=== PATIENT | male | born 1945 | race Caucasian/White ===

== ENCOUNTER → 2017-10-29 | Outpatient (CLI) | payer OTHER, MEDICARE | END | disposition home or self-care (01) | LOC: C.LABSPEC 17:05 | PROVIDERS: ATTEND Physician Assistant | DX: S81.802A Unspecified open wound, left lower leg, initial encounter (principal); X58.XXXA Exposure to other specified factors, initial encounter ==

== ENCOUNTER 2021-09-22 02:46 | Inpatient (IN) ==
--- NOTE | 2021-09-22 03:25 | Emergency Department Note ---
Impression & Plan Acute UTI (urinary tract infection), Acute confusion, Cellulitis ADMIT ED Provider Note HPI: The patient is a 75-year-old gentleman with history of lymphedema, hyperlipi demia, type 2 diabetes, reports history of rheumatoid arthritis and he is on methotrexate, presents the emergency department with a chief complaint of fever yesterday. Patient states he is also had increased urination. Patient states that the lymphedema in his right lower extremity seems to be more red/inflamed than previous. Patient's states that he has been mildly confused recently. On arrival to the ED the patient is hemodynamically stable, he is in no acute distress on my initial evaluation, he is alert and oriented x3 but somewhat slow to respond to questions. ROS: -: Urinary frequency -Neuro: Confusion -General: Subjective fevers -Skin: Right lower extremity cellulitis and lymphedema *10 point review systems was conducted and is otherwise negative unless stated above *Outpatient medications and allergy history reviewed PE: General: Morbidly obese, alert, NAD HEENT: Normocephalic, atraumatic Eyes: Extraocular eye movement is intact, no scleral erythema Pulmonary: Clear to auscultation bilaterally, no wheezing Cardio: Regular rate and rhythm GI: Abdomen is soft, nontender : No suprapubic tenderness MSK: Swelling of the bilateral lower extremities below the knee consistent with pre-existing lymphedema Skin: Erythema is noted to the right lower extremity near circumferential, no blister formation or purulent drainage, no crepitus to palpation Neuro: Alert, no focal deficits Psychiatric: Cooperative teletypesetter monitor: - An order was placed for continuous cardiac monitoring - Patient was noted to be in sinus rhythm with rate of 103 EKG: Rate: 109 Rhythm: Sinus tachycardia Intervals: Within normal limits ST changes: No ST elevation Time: 0321 Medical Decision Making: Patient presented to the emergency department with some altered mental status, he has had some confusion, he is also had subjective fevers, admits to frequent urination, also complains of some worsening redness and pain in his right lower extremity. He is morbidly obese, has a pre-existing history of lymphedema. He is tachycardic on arrival but otherwise hemodynamically stable, saturating well on room air. IV was established, lab work obtained, patient does have evidence of a significant leukocytosis of 19.5, blood cultures were drawn, urinalysis does show evidence of infection, patient was treated with IV ceftriaxone as well as IV vancomycin over concern for cellulitic changes to the right lower extremity. CT emerging of the head does not show any evidence of an acute process, CT imaging of the abdomen pelvis does not show any evidence of pyelonephritis. I discussed the above findings with the patient and his son at the bedside, in addition to his leukocytosis his procalcitonin is also elevated, I do think he would benefit from admission for IV antibiotics given his size and multiple comorbidities. Patient expressed an agreement understanding. He is in agreement to admission, case was discussed with the on-call hospitalist for [facility], Dr. Martinez, the patient was admitted in stable condition for further care. Diagnosis: 1. Metabolic encephalopathy 2. Urinary tract infection 3. Leukocytosis 4. Elevated procalcitonin 5. Right lower extremity cellulitis 6. History of lymphedema of the bilateral lower extremities 7. Morbid obesity Disposition: Admission [facility], Emergency Medicine Past Med/Surg History Social History Smoking Status: Never smoker Feels Safe at Home: Yes Allergies Allergies Allergy/AdvReac Type Severity Reaction Status Date / Time No Known Allergies Allergy Unknown Verified 09/25/20 17:44 NONSTEROIDAL AdvReac Unknown NO NSAIDS Uncoded 09/25/20 17:[address] HUNT ON 12/06/03 Home Meds Home Medications Medication Instructions Recorded Confirmed cholecalciferol (vitamin D3) 125 125 mcg PO DAILY 09/23/19 09/25/20 mcg (5,000 unit) capsule cyclobenzaprine 10 mg tablet 10 mg PO HS PRN 09/23/19 09/25/20 folic acid 1 mg tablet 1 mg PO DAILY 09/23/19 09/25/20 furosemide 40 mg tablet 40 mg PO DAILY 09/23/19 09/25/20 losartan 50 mg tablet 50 mg PO DAILY 09/23/19 09/25/20 metformin 500 mg tablet 500 mg PO DAILY 09/23/19 09/25/20 metolazone 2.5 mg tablet 2.5 mg PO DAILY 09/23/19 09/25/20 multivitamin (Daily Multi-Vitamin) 1 tab PO DAILY 09/23/19 09/25/20 oxycodone-acetaminophen 5 mg-325 1 tab PO UD PRN 09/23/19 09/25/20 mg tablet spironolactone 25 mg tablet 25 mg PO DAILY 09/23/19 09/25/20 trazodone 100 mg tablet 100 mg PO HS 09/23/19 09/25/20 calcium carbonate 500 mg-vitamin 1 tab PO DAILY 09/25/20 09/25/20 D3 15 mcg (600 unit) tablet methylprednisolone 4 mg tablet 32 mg PO DAILY 09/25/20 09/25/20 tizanidine 4 mg tablet 4 mg PO UD 09/25/20 09/25/20 vit A 300 mcg-C 200 mg-E 27 1 tab PO DAILY 09/25/20 09/25/20 [id number]-lutein tablet (Eye Multivitamin With Lutein) Results & Data (ED) Vital Signs Vital Signs - 24 hr 09/22/21 02:51 09/22/21 04:04 09/22/21 04:06 Temperature 37 C Temperature Source Temporal Artery Scan Pulse Rate 109 H 108 H Pulse Rate [Finger] 108 H Respiratory Rate 18 22 20 Respiratory Effort / Characteristics Non-Labored Spontaneous Non-Labored Spontaneous Respiratory Depth Normal Normal Respiratory Pattern Regular Blood Pressure 155/66 H Blood Pressure [Right Arm] 144/74 H Blood Pressure Mean 95 Blood Pressure Mean [Right Arm] 97 Blood Pressure Position Sitting Blood Pressure Position [Right Arm] Sitting Pulse Oximetry 93 94 94 Oxygen Delivery Method Room Air Room Air Room Air Sepsis Recent Fever Within 48 Hours No Sepsis New/Unexplained Change in Mental Status No Sepsis Action Taken by Nursing No Action Required 09/22/21 04:07 09/22/21 05:49 Temperature Temperature Source Pulse Rate Pulse Rate [Finger] 103 H Respiratory Rate 20 Respiratory Effort / Characteristics Non-Labored Spontaneous Respiratory Depth Normal Respiratory Pattern Blood Pressure Blood Pressure [Right Arm] 140/101 H Blood Pressure Mean Blood Pressure Mean [Right Arm] 114 Blood Pressure Position Blood Pressure Position [Right Arm] Sitting Pulse Oximetry 94 98 Oxygen Delivery Method Room Air Room Air Sepsis Recent Fever Within 48 Hours Sepsis New/Unexplained Change in Mental Status Sepsis Action Taken by Nursing Laboratory Data Result diagrams: 09/22/21 03:54 09/22/21 03:54 Lab Results 09/22/21 09/22/21 09/22/21 Range/Units 03:54 03:54 03:54 WBC 19.57 H (4.8-10.8) K/uL RBC 4.52 L (4.7-6.1) M/uL Hgb 14.0 (14.0-18.0) g/dL Hct 43.7 (42-52) % MCV 96.7 (80-100) fL MCH 31.0 (25-34) pg MCHC 32.0 (32-36) g/dL RDW Std Deviation 51.9 H (36.4-46.3) fL RDW Coeff of Ebony 14.8 H (11.5-14.5) % Plt Count 246 (130-400) K/uL MPV 8.4 (7.4-10.4) fL Immature Gran % (Auto) 0.7 % Neut % (Auto) 92.3 % Lymph % (Auto) 3.1 % [place] % (Auto) 3.6 % Eos % (Auto) 0.2 % Baso % (Auto) 0.1 % Neut # (Auto) 18.08 H (1.4-6.5) K/uL Lymph # (Auto) 0.60 L (1.2-3.4) K/uL [place] # (Auto) 0.70 H (0.11-0.59) K/uL Eos # (Auto) 0.04 (0-0.5) K/uL Baso # (Auto) 0.02 (0-0.2) K/uL Immature Gran # (Auto) 0.13 H (0.00-0.02) K/uL PT 11.9 (9.0-12.0) Seconds INR 1.2 H (0.9-1.1) APTT 28.8 (21.0-31.0) Seconds PTT Ratio 1.1 Sodium 137 (136-145) mmol/L Potassium 3.9 (3.5-5.1) mmol/L Chloride 100 (98-107) mmol/L Carbon Dioxide 27 (21-32) mmol/L Anion Gap 10 (3-11) BUN 24 H (6-23) mg/dl Creatinine 1.03 (0.6-1.4) mg/dl Est Cr Clr Drug Dosing Not Reportable Est GFR ( Amer) 83.1 ml/min Est GFR (Non-Af Amer) 71.7 ml/min BUN/Creatinine Ratio 23.3 H (10-20) Glucose 164 H (70-99(Fasting)) mg/dl Lactate (0.4-2.0) mmol/L Calcium 9.1 (8.5-10.1) mg/dl Magnesium 1.8 (1.7-2.4) mg/dl Total Bilirubin 0.9 (0.2-1.0) mg/dl AST 29 (13-39) U/L ALT 35 (7-52) U/L Alkaline Phosphatase 66 (34-104) U/L Total Protein 6.9 (6.0-8.3) gm/dl Albumin 4.2 (3.4-5.0) gm/dl Globulin 2.7 (2.5-4.0) gm/dl Albumin/Globulin Ratio 1.6 (0.9-2) Procalcitonin (0-0.5) ng/ml TSH (0.300-4.500) uIu/ml Urine Color Urine Appearance (Clear) Urine pH (4.5-7.5) Ur Specific [place] (1.000-1.030) Urine Protein (Negative) Urine Glucose (UA) (Negative) Urine Ketones (Negative) Urine Blood (Negative) Urine Nitrite (Negative) Urine Bilirubin (Negative) Urine Urobilinogen (Negative) Ur Leukocyte Esterase (Negative) Urine WBC (Auto) (0-5) /hpf Urine RBC (Auto) (0-4) /hpf U Hyaline Cast (Auto) (0-5) /lpf U Epithel Cells (Auto) (0-5) /lpf Urine Bacteria (Auto) (Negative) SARS-CoV-2, RNA, NAAT (NEGATIVE) 09/22/21 09/22/21 09/22/21 Range/Units 03:54 03:54 03:54 WBC (4.8-10.8) K/uL RBC (4.7-6.1) M/uL Hgb (14.0-18.0) g/dL Hct (42-52) % MCV (80-100) fL MCH (25-34) pg MCHC (32-36) g/dL RDW Std Deviation (36.4-46.3) fL RDW Coeff of Ebony (11.5-14.5) % Plt Count (130-400) K/uL MPV (7.4-10.4) fL Immature Gran % (Auto) % Neut % (Auto) % Lymph % (Auto) % [place] % (Auto) % Eos % (Auto) % Baso % (Auto) % Neut # (Auto) (1.4-6.5) K/uL Lymph # (Auto) (1.2-3.4) K/uL [place] # (Auto) (0.11-0.59) K/uL Eos # (Auto) (0-0.5) K/uL Baso # (Auto) (0-0.2) K/uL Immature Gran # (Auto) (0.00-0.02) K/uL PT (9.0-12.0) Seconds INR (0.9-1.1) APTT (21.0-31.0) Seconds PTT Ratio Sodium (136-145) mmol/L Potassium (3.5-5.1) mmol/L Chloride (98-107) mmol/L Carbon Dioxide (21-32) mmol/L Anion Gap (3-11) BUN (6-23) mg/dl Creatinine (0.6-1.4) mg/dl Est Cr Clr Drug Dosing Est GFR ( Amer) ml/min Est GFR (Non-Af Amer) ml/min BUN/Creatinine Ratio (10-20) Glucose (70-99(Fasting)) mg/dl Lactate 1.5 (0.4-2.0) mmol/L Calcium (8.5-10.1) mg/dl Magnesium (1.7-2.4) mg/dl Total Bilirubin (0.2-1.0) mg/dl AST (13-39) U/L ALT (7-52) U/L Alkaline Phosphatase (34-104) U/L Total Protein (6.0-8.3) gm/dl Albumin (3.4-5.0) gm/dl Globulin (2.5-4.0) gm/dl Albumin/Globulin Ratio (0.9-2) Procalcitonin 0.91 H (0-0.5) ng/ml TSH 1.075 (0.300-4.500) uIu/ml Urine Color Urine Appearance (Clear) Urine pH (4.5-7.5) Ur Specific [place] (1.000-1.030) Urine Protein (Negative) Urine Glucose (UA) (Negative) Urine Ketones (Negative) Urine Blood (Negative) Urine Nitrite (Negative) Urine Bilirubin (Negative) Urine Urobilinogen (Negative) Ur Leukocyte Esterase (Negative) Urine WBC (Auto) (0-5) /hpf Urine RBC (Auto) (0-4) /hpf U Hyaline Cast (Auto) (0-5) /lpf U Epithel Cells (Auto) (0-5) /lpf Urine Bacteria (Auto) (Negative) SARS-CoV-2, RNA, NAAT (NEGATIVE) 09/22/21 09/22/21 Range/Units 04:39 Unknown WBC (4.8-10.8) K/uL RBC (4.7-6.1) M/uL Hgb (14.0-18.0) g/dL Hct (42-52) % MCV (80-100) fL MCH (25-34) pg MCHC (32-36) g/dL RDW Std Deviation (36.4-46.3) fL RDW Coeff of Ebony (11.5-14.5) % Plt Count (130-400) K/uL MPV (7.4-10.4) fL Immature Gran % (Auto) % Neut % (Auto) % Lymph % (Auto) % [place] % (Auto) % Eos % (Auto) % Baso % (Auto) % Neut # (Auto) (1.4-6.5) K/uL Lymph # (Auto) (1.2-3.4) K/uL [place] # (Auto) (0.11-0.59) K/uL Eos # (Auto) (0-0.5) K/uL Baso # (Auto) (0-0.2) K/uL Immature Gran # (Auto) (0.00-0.02) K/uL PT (9.0-12.0) Seconds INR (0.9-1.1) APTT (21.0-31.0) Seconds PTT Ratio Sodium (136-145) mmol/L Potassium (3.5-5.1) mmol/L Chloride (98-107) mmol/L Carbon Dioxide (21-32) mmol/L Anion Gap (3-11) BUN (6-23) mg/dl Creatinine (0.6-1.4) mg/dl Est Cr Clr Drug Dosing Est GFR ( Amer) ml/min Est GFR (Non-Af Amer) ml/min BUN/Creatinine Ratio (10-20) Glucose (70-99(Fasting)) mg/dl Lactate (0.4-2.0) mmol/L Calcium (8.5-10.1) mg/dl Magnesium (1.7-2.4) mg/dl Total Bilirubin (0.2-1.0) mg/dl AST (13-39) U/L ALT (7-52) U/L Alkaline Phosphatase (34-104) U/L Total Protein (6.0-8.3) gm/dl Albumin (3.4-5.0) gm/dl Globulin (2.5-4.0) gm/dl Albumin/Globulin Ratio (0.9-2) Procalcitonin (0-0.5) ng/ml TSH (0.300-4.500) uIu/ml Urine Color Dark Yellow Urine Appearance Cloudy A (Clear) Urine pH 8.5 H (4.5-7.5) Ur Specific [place] 1.034 H (1.000-1.030) Urine Protein 1+ H (Negative) Urine Glucose (UA) Negative (Negative) Urine Ketones 2+ H (Negative) Urine Blood Negative (Negative) Urine Nitrite Positive A (Negative) Urine Bilirubin Negative (Negative) Urine Urobilinogen Negative (Negative) Ur Leukocyte Esterase 2+ H (Negative) Urine WBC (Auto) >30 H (0-5) /hpf Urine RBC (Auto) 0-4 (0-4) /hpf U Hyaline Cast (Auto) 10-30 H (0-5) /lpf U Epithel Cells (Auto) 5-10 H (0-5) /lpf Urine Bacteria (Auto) 4+ H (Negative) SARS-CoV-2, RNA, NAAT NEGATIVE (NEGATIVE) Administered Medications Doxycycline Hyclate 100 mg/ (Dextrose) 110 mls @ 50 mls/hr IV NOW STA Stop: 09/22/21 08:16 Last Admin: 09/22/21 06:40 Dose: 50 mls/hr Documented by: [id number] Discontinued Medications Ceftriaxone Sodium (Rocephin) 2,000 mg in 70 mls @ 140 mls/hr IV NOW STA Stop: 09/22/21 05:57 Last Infusion: 09/22/21 06:42 Dose: 0 mls/hr Documented by: [id number] Admin: 09/22/21 05:42 Dose: 140 mls/hr Documented by: [id number] Sodium Chloride (Nss 1000ml) 1,000 mls @ 999 mls/hr IV .Q1H1M ONE Stop: 09/22/21 06:35 Last Infusion: 09/22/21 06:46 Dose: 999 mls/hr Documented by: [id number] Admin: 09/22/21 05:45 Dose: 999 mls/hr Documented by: [id number] Ioversol (Optiray 320 125ml) 120 ml IV ONCE ONE Stop: 09/22/21 06:23 Last Admin: 09/22/21 06:23 Dose: 1 ml Documented by: [id number] Imaging Data Radiologist's Impression: Chest X-Ray 09/22/21 03:23 XR chest 1V portable CLINICAL HISTORY: Sepsis. COMPARISON STUDY: Chest radiograph September 25, 2020. FINDINGS: Lung volumes are normal. Lungs are clear. There is no pneumothorax or pleural effusion. Enlargement of the cardiac silhouette is unchanged. Mediastinal contours are stable. There is no evidence for pulmonary edema. IMPRESSION: No acute cardiopulmonary findings. No significant change in appearance of the chest. ACT 112: Negative or not required by law. Electronically signed by: Pavel Gorman M.D. 09/22/2021 6:[address] 09/22/21 03:[address] DOSE: 1280.08 mGy.cm HISTORY: Altered mental status. Fall. TECHNIQUE: Multiaxial CT images of the head were performed without the use of intravenous contrast. Automated exposure control was utilized for this study. A dose lowering technique was utilized adhering to the principles of ALARA. Comparison: Head CT 09/25/2020. Findings: The paranasal sinuses and mastoid air cells are clear. The calvarium and skull base are intact. There is no mass, hematoma, midline shift, acute infarct. White matter hypodensity is nonspecific but suggestive of microvascular ischemic change. The ventricles and sulci demonstrate mild age-related involutional changes. Old punctate lacunar infarcts seen within the bilateral basal ganglia. Prominent perivascular space inferior to the left basal ganglia, unchanged. Mild motion artifact. Impression: Mild motion artifact. No definite acute intracranial abnormality. ACT 112: Negative or not required by law. Electronically signed by: Obi Cullen M.D. 09/22/2021 7:08 AM Abdomen/Pelvis CT 09/22/21 05:39 CT OF THE ABDOMEN AND PELVIS WITH CONTRAST CLINICAL HISTORY: Flank pain. Evaluate for pyelonephritis. COMPARISON STUDY: None. TECHNIQUE: Following IV administration of Optiray, axial images of the abdomen and pelvis were obtained from the lung bases to the proximal femurs. Images were reviewed in the axial, sagittal, and coronal planes. IV contrast was administered without complication. Automated exposure control was utilized for the study. A dose lowering technique was utilized adhering to the principles of ALARA. CT DOSE: 2076.00 mGy.cm FINDINGS: This exam is compromised given body wall contacting the gantry. Therefore, the left anterior aspect of the abdomen is obscured on this examination. No definite pneumatosis, free air or portal venous gas is noted although sensitivity is diminished. Hepatic steatosis is noted. There is no biliary or pancreatic ductal dilatation. Pancreatic glandular atrophy is present. There is no peripancreatic or pericholecystic infiltration. Gallbladder is mildly distended without adjacent infiltration. Excreted contrast within the collecting systems, ureters and bladder decreases sensitivity for detection of urinary calculi however there is no hydronephrosis. No renal fluid collection is present. There is no significant perinephric infiltration. There is no evidence for a bowel obstruction. The appendix is normal. Sigmoid diverticulosis is noted without evidence for acute diverticulitis. No fluid collection is identified. There is no ascites. Postoperative findings within the lumbosacral spine are present. There is no lymphadenopathy. IMPRESSION: 1. No hydronephrosis. Unremarkable appearance of the kidneys. Decreased sensitivity for detection of calculi given excreted contrast. 2. Exam compromised given body wall contacting the gantry. No acute process identified within visualized portions of the abdomen or pelvis. 3. Hepatic steatosis. 4. No bowel obstruction. 5. Sigmoid diverticulosis without evidence for acute diverticulitis. ACT 112: Negative or not required by law. Electronically signed by: Pavel Gorman M.D. 09/22/2021 6:44 AM Discharge Plan Visit Data Chief Complaint: Confusion Stated Complaint: FEVER,CONFUSION,EXCESSIVE URINATION ED Provider: Pal Petersen Discharge Problem: Acute UTI (urinary tract infection), Acute confusion, Cellulitis Forms Stand Alone Forms: Pressi Prescriptions Prescriptions: No Action cholecalciferol (vitamin D3) 125 mcg (5,000 unit) capsule 125 mcg PO DAILY RF: 0 trazodone 100 mg tablet 100 mg PO HS RF: 0 oxycodone-acetaminophen 5-325 mg tablet 1 tab PO UD PRN (Reason: Pain) RF: 0 spironolactone 25 mg tablet 25 mg PO DAILY RF: 0 metformin 500 mg tablet 500 mg PO DAILY RF: 0 metolazone 2.5 mg tablet 2.5 mg PO DAILY RF: 0 furosemide 40 mg tablet 40 mg PO DAILY RF: 0 cyclobenzaprine 10 mg tablet 10 mg PO HS PRN (Reason: Muscle Spasm) RF: 0 losartan 50 mg tablet 50 mg PO DAILY RF: 0 multivitamin [Daily Multi-Vitamin] Tablet 1 tab PO DAILY RF: 0 folic acid 1 mg tablet 1 mg PO DAILY RF: 0 methylprednisolone 4 mg tablet 32 mg PO DAILY RF: 0 calcium carbonate-vitamin D3 500mg (1,250mg) -600 unit Tablet 1 tab PO DAILY RF: 0 Eye Multivitamin With Lutein 300 mcg-200 mg- 27 mg Tablet 1 tab PO DAILY RF: 0 tizanidine 4 mg tablet 4 mg PO UD RF: 0 Referrals Referrals: Jasper Tohrnton [Primary Care Provider] - Discharge Problem: Cellulitis Qualifiers: Site of cellulitis: extremity Site of cellulitis of extremity: lower extremity Laterality: right Qualified Code(s): L03.115 - Cellulitis of right lower limb
[2021-09-22 04:08] LABS: Basophils # (auto) 0.02 K/uL (0-0.2); Basophils % (auto) 0.1 %; Eosinophils # (auto) 0.04 K/uL (0-0.5); Eosinophils % (auto) 0.2 %; Hematocrit (blood only) 43.7 % (42-52); Immature Granulocytes # (auto) 0.13 K/uL (0.00-0.02); Immature Granulocytes % (auto) 0.7 %; Lymphocytes % (auto) 3.1 %; Mean Corpuscular Volume 96.7 fL (80-100); Mean Platelet Volume 8.4 fL (7.4-10.4); Monocytes % (auto) 3.6 %; Neutrophils # (auto) 18.08 K/uL (1.4-6.5); Neutrophils % (auto) 92.3 %; Platelet Count 246 K/uL (130-400); RDW Coefficient of Variation 14.8 % (11.5-14.5); RDW Standard Deviation 51.9 fL (36.4-46.3); Red Blood Count 4.52 M/uL (4.7-6.1); White Blood Count 19.57 K/uL (4.8-10.8)
[2021-09-22 04:22] LABS: INR 1.2 (0.9-1.1); Partial Thromboplastin Ratio 1.1; Partial Thromboplastin Time 28.8 Seconds (21.0-31.0); Prothrombin Time 11.9 Seconds (9.0-12.0)
[2021-09-22 04:25] LABS: Alanine Aminotransferase 35 U/L (7-52); Albumin Globulin Ratio 1.6 (0.9-2); Albumin Level 4.2 gm/dl (3.4-5.0); Alkaline Phosphatase 66 U/L (34-104); Anion Gap 10 (3-11); Aspartate Aminotransferase 29 U/L (13-39); BUN Creatinine Ratio 23.3 (10-20); Bilirubin,Total 0.9 mg/dl (0.2-1.0); Blood Urea Nitrogen 24 mg/dl (6-23); Calcium 9.1 mg/dl (8.5-10.1); Carbon Dioxide 27 mmol/L (21-32); Chloride 100 mmol/L (98-107); Est GFR (African American) 83.1 ml/min; Est GFR (Non-African American) 71.7 ml/min; Globulin 2.7 gm/dl (2.5-4.0); Glucose 164 mg/dl (70-99(Fasting)); Magnesium 1.8 mg/dl (1.7-2.4); Potassium 3.9 mmol/L (3.5-5.1); Sodium 137 mmol/L (136-145); Total Protein 6.9 gm/dl (6.0-8.3)
[2021-09-22 04:58] LABS: Appearance Urine Cloudy (Clear); Bacteria Urine Automated 4+ (Negative); Bilirubin Urine Negative (Negative); Blood Urine Negative (Negative); Color Urine Dark Yellow; Glucose Urine UA Negative (Negative); Ketones Urine 2+ (Negative); Leukocyte Esterase Urine 2+ (Negative); Nitrite Urine Positive (Negative); RBC Urine Automated 0-4 /hpf (0-4); Specific Gravity Urine 1.034 (1.000-1.030); Urobilinogen Urine Negative (Negative); WBC Urine Automated >30 /hpf (0-5); pH Urine 8.5 (4.5-7.5)
[2021-09-22 05:01] LABS: Protein Urine 1+ (Negative)
[2021-09-22] MEDS ORDERED: VANCOMYCIN CONSULT ACTIVE PRN (05:28)
[2021-09-22] MEDS ORDERED: cefTRIAXone SODIUM 2,000 MG/70 ML BAG IV STA (05:28)
[2021-09-22] MEDS ORDERED: VANCOMYCIN HCL 2,000 MG in SODIUM CHLORIDE 0.9% 500 ML IV SCH (05:30)
[2021-09-22] MEDS ORDERED: SODIUM CHLORIDE 0.9% 1000ML 1,000 ML IV ONE (05:35)
[2021-09-22] MEDS ORDERED: DOXYCYCLINE HYCLATE 100 MG in DEXTROSE 5% 100 ML IV STA (06:05)
[2021-09-22] MEDS ORDERED: MAGNESIUM SULFATE / D5W 1 GM/100 ML BAG IV STA (06:10)
[2021-09-22] MEDS ORDERED: OPTIRAY 320 125ml IV ONE (06:22)
--- NOTE | 2021-09-22 06:45 | CT Scan Report ---
CT OF THE ABDOMEN AND PELVIS WITH CONTRAST CLINICAL HISTORY: Flank pain. Evaluate for pyelonephritis. COMPARISON STUDY: None. TECHNIQUE: Following IV administration of Optiray, axial images of the abdomen and pelvis were obtain ed from the lung bases to the proximal femurs. Images were reviewed in the axial, sagittal, and coron al planes. IV contrast was administered without complication. Automated exposure control was utilize d for the study. A dose lowering technique was utilized adhering to the principles of ALARA. CT DOSE: 2076.00 mGy.cm FINDINGS: This exam is compromised given body wall contacting the gantry. Therefore, the left anterio r aspect of the abdomen is obscured on this examination. No definite pneumatosis, free air or portal venous gas is noted although sensitivity is diminished. Hepatic steatosis is noted. There is no bilia ry or pancreatic ductal dilatation. Pancreatic glandular atrophy is present. There is no peripancreat ic or pericholecystic infiltration. Gallbladder is mildly distended without adjacent infiltration. Ex creted contrast within the collecting systems, ureters and bladder decreases sensitivity for detectio n of urinary calculi however there is no hydronephrosis. No renal fluid collection is present. There is no significant perinephric infiltration. There is no evidence for a bowel obstruction. The appendi x is normal. Sigmoid diverticulosis is noted without evidence for acute diverticulitis. No fluid ad ection is identified. There is no ascites. Postoperative findings within the lumbosacral spine are pr esent. There is no lymphadenopathy. IMPRESSION: 1. No hydronephrosis. Unremarkable appearance of the kidneys. Decreased sensitivity for detection of calculi given excreted contrast. 2. Exam compromised given body wall contacting the gantry. No acute process identified within visuali zed portions of the abdomen or pelvis. 3. Hepatic steatosis. 4. No bowel obstruction. 5. Sigmoid diverticulosis without evidence for acute diverticulitis. ACT 112: Negative or not required by law. Electronically signed by: Pavel Gorman M.D. 09/22/2021 6:44 AM
[2021-09-22] MEDS ORDERED: CEFEPIME 2,000 MG/20 ML VIAL IV STA (06:54)
--- NOTE | 2021-09-22 06:55 | XRay Report ---
XR chest 1V portable CLINICAL HISTORY: Sepsis. COMPARISON STUDY: Chest radiograph September 25, 2020. FINDINGS: Lung volumes are normal. Lungs are clear. There is no pneumothorax or pleural effusion. Enl argement of the cardiac silhouette is unchanged. Mediastinal contours are stable. There is no evidenc e for pulmonary edema. IMPRESSION: No acute cardiopulmonary findings. No significant change in appearance of the chest. ACT 112: Negative or not required by law. Electronically signed by: Pavel Gorman M.D. 09/22/2021 6:53 AM
--- NOTE | 2021-09-22 06:56 | History & Physical Report ---
Date of Service September 22, 2021 Assessment & Plan (1) Sepsis: Plan: Immunocompromised patient hx seronegative polyarthritis on chronic steroid Rx Possible sources : RLE cellulitis rule out DVT Complicated UTI Encephalopathy secondary to above Resolved after initial intervention hypertension, slightly elevated Hyperlipidemia statin Rx chronic back pain, at baseline DM2 on oral medications, suboptimal control as of outpatient hemoglobin A1c of 8.1, September 2021 Medical telemetry CS Doxycycline for cellulitis Cefepime for complicated UTI LE Dopplers rule out DVT Basal insulin, ISS BG goal 1 10-1 40, carb count coverage PT OT eval DVT prophylaxis Lovenox Full code Patient family requesting updates providers. Ms. Serenity Luciano (), contact #[phone] Mr. Masood Luciano (son), contact #[phone]. Text document was generated using [employer] voice recognition software. It may contain grammatical or spelling errors. Kindly contact undersigned for clarification of any documentation item in question. History of Present Illness Chief Complaint: Fever, weakness,confusion Primary Care Provider: Jasper Thornton History obtained from patient, family, and records. Medical history significant for seronegative polyarthritis on chronic steroid Rx, hypertension, hyperlipidemia, chronic back pain status post surgery, DM2 on oral medications. Patient not well the last few days as per son. Little unstable on his feet causing him to fall down a week ago. Some bruising noted. Patient denies chest pain, LOC, headache, LOC. About 2 days ago, patient noted to have fever at home with generalized weakness. Right leg more swollen than usual. Patient somewhat confused as per son. No abdominal pain, diarrhea or dysuria symptoms. Patient brought to the ER for evaluation. Ceftriaxone given at the ER for sepsis. Patient mentation significantly improved after initial ER intervention as per son. Medical History as above Surgical History : Tonsillectomy/adenoidectomy, multiple back surgeries Family History : Parkinson's disease, lung cancer Personal/Social history : Non-smoker, occasional EtOH intake, lives with Allergies Allergy/AdvReac Type Severity Reaction Status Date / Time No Known Allergies Allergy Unknown Verified 09/22/21 08:44 NONSTEROIDAL AdvReac Unknown NO NSAIDS Uncoded 09/22/21 08:[address] HUNT ON 12/06/03 Home Medications Medication Instructions Recorded Confirmed Type cholecalciferol (vitamin D3) 125 125 mcg PO DAILY 09/23/19 09/22/21 History mcg (5,000 unit) capsule losartan 50 mg tablet 50 mg PO DAILY 09/23/19 09/22/21 History metformin 500 mg tablet 500 mg PO DAILY 09/23/19 09/22/21 History metolazone 2.5 mg tablet 2.5 mg PO DAILY 09/23/19 09/22/21 History multivitamin (Daily Multi-Vitamin) 1 tab PO DAILY 09/23/19 09/22/21 History oxycodone-acetaminophen 5 mg-325 1 tab PO UD PRN 09/23/19 09/22/21 History mg tablet calcium carbonate 500 mg-vitamin 1 tab PO DAILY 09/25/20 09/22/21 History D3 15 mcg (600 unit) tablet methylprednisolone 4 mg tablet 6 mg PO DAILY 09/25/20 09/22/21 History tizanidine 4 mg tablet 4 mg PO UD 09/25/20 09/22/21 History atorvastatin 10 mg tablet 10 mg PO 3XWK 09/22/21 09/22/21 History Past Med/Surg History Social History Smoking Status: Never smoker Feels Safe at Home: Yes Review of Systems Review of Systems: As per HPI, all 10 systems reviewed, all other ROS negative Physical Exam Physical Exam: GENERAL: Comfortable, pleasant, morbidly obese, no respiratory distress SKIN: Normal color, warm HEENT: [place] palpebral conjunctivae, no ptosis, healing contusion, left [place] orbital area, dry buccal mucosa NECK : Supple, short neck, no tenderness CHEST : Decreased breath sounds, no tenderness HEART : Tachycardic, no obvious murmurs ABDOMEN: distention, nontender EXTREMITIES : Bilateral LE swelling with erythema, minimal tenderness, petechiae over right leg, no other conspicuous deformities noted NEUROLOGIC : Coherent, no facial asymmetry, no other gross focality Results & Data Results & Data ([facility]) Vital Signs (Past 12 Hours) Vital Signs Temp Pulse Pulse Resp BP BP Pulse Ox 09/22/21 05:49 103 H 20 140/101 H 98 09/22/21 04:07 94 09/22/21 04:06 108 H 20 144/74 H 94 09/22/21 04:04 108 H 22 94 09/22/21 02:51 37 C 109 H 18 155/66 H 93 Laboratory Results Laboratory Results WBC 19.57 K/uL (4.8-10.8) H 09/22/21 03:54 RBC 4.52 M/uL (4.7-6.1) L 09/22/21 03:54 Hgb 14.0 g/dL (14.0-18.0) 09/22/21 03:54 Hct 43.7 % (42-52) 09/22/21 03:54 MCV 96.7 fL (80-100) 09/22/21 03:54 MCH 31.0 pg (25-34) 09/22/21 03:54 MCHC 32.0 g/dL (32-36) 09/22/21 03:54 RDW Std Deviation 51.9 fL (36.4-46.3) H 09/22/21 03:54 RDW Coeff of Ebony 14.8 % (11.5-14.5) H 09/22/21 03:54 Plt Count 246 K/uL (130-400) 09/22/21 03:54 MPV 8.4 fL (7.4-10.4) 09/22/21 03:54 Immature Gran % (Auto) 0.7 % 09/22/21 03:54 Neut % (Auto) 92.3 % 09/22/21 03:54 Lymph % (Auto) 3.1 % 09/22/21 03:54 Vance % (Auto) 3.6 % 09/22/21 03:54 Eos % (Auto) 0.2 % 09/22/21 03:54 Baso % (Auto) 0.1 % 09/22/21 03:54 Neut # (Auto) 18.08 K/uL (1.4-6.5) H 09/22/21 03:54 Lymph # (Auto) 0.60 K/uL (1.2-3.4) L 09/22/21 03:54 Vance # (Auto) 0.70 K/uL (0.11-0.59) H 09/22/21 03:54 Eos # (Auto) 0.04 K/uL (0-0.5) 09/22/21 03:54 Baso # (Auto) 0.02 K/uL (0-0.2) 09/22/21 03:54 Immature Gran # (Auto) 0.13 K/uL (0.00-0.02) H 09/22/21 03:54 PT 11.9 Seconds (9.0-12.0) 09/22/21 03:54 INR 1.2 (0.9-1.1) H 09/22/21 03:54 APTT 28.8 Seconds (21.0-31.0) 09/22/21 03:54 PTT Ratio 1.1 09/22/21 03:54 Sodium 137 mmol/L (136-145) 09/22/21 03:54 Potassium 3.9 mmol/L (3.5-5.1) 09/22/21 03:54 Chloride 100 mmol/L (98-107) 09/22/21 03:54 Carbon Dioxide 27 mmol/L (21-32) 09/22/21 03:54 Anion Gap 10 (3-11) 09/22/21 03:54 BUN 24 mg/dl (6-23) H 09/22/21 03:54 Creatinine 1.03 mg/dl (0.6-1.4) 09/22/21 03:54 Est Cr Clr Drug Dosing Not Reportable 09/22/21 03:54 Est GFR ( Amer) 83.1 ml/min 09/22/21 03:54 Est GFR (Non-Af Amer) 71.7 ml/min 09/22/21 03:54 BUN/Creatinine Ratio 23.3 (10-20) H 09/22/21 03:54 Glucose 164 mg/dl (70-99(Fasting)) H 09/22/21 03:54 Lactate 1.5 mmol/L (0.4-2.0) 09/22/21 03:54 Calcium 9.1 mg/dl (8.5-10.1) 09/22/21 03:54 Magnesium 1.8 mg/dl (1.7-2.4) 09/22/21 03:54 Total Bilirubin 0.9 mg/dl (0.2-1.0) 09/22/21 03:54 AST 29 U/L (13-39) 09/22/21 03:54 ALT 35 U/L (7-52) 09/22/21 03:54 Alkaline Phosphatase 66 U/L (34-104) 09/22/21 03:54 Total Protein 6.9 gm/dl (6.0-8.3) 09/22/21 03:54 Albumin 4.2 gm/dl (3.4-5.0) 09/22/21 03:54 Globulin 2.7 gm/dl (2.5-4.0) 09/22/21 03:54 Albumin/Globulin Ratio 1.6 (0.9-2) 09/22/21 03:54 Procalcitonin 0.91 ng/ml (0-0.5) H 09/22/21 03:54 Urine Color Dark Yellow 09/22/21 04:39 Urine Appearance Cloudy (Clear) A 09/22/21 04:39 Urine pH 8.5 (4.5-7.5) H 09/22/21 04:39 Ur Specific [place] 1.034 (1.000-1.030) H 09/22/21 04:39 Urine Protein 1+ (Negative) H 09/22/21 04:39 Urine Glucose (UA) Negative (Negative) 09/22/21 04:39 Urine Ketones 2+ (Negative) H 09/22/21 04:39 Urine Blood Negative (Negative) 09/22/21 04:39 Urine Nitrite Positive (Negative) A 09/22/21 04:39 Urine Bilirubin Negative (Negative) 09/22/21 04:39 Urine Urobilinogen Negative (Negative) 09/22/21 04:39 Ur Leukocyte Esterase 2+ (Negative) H 09/22/21 04:39 Urine WBC (Auto) >30 /hpf (0-5) H 09/22/21 04:39 Urine RBC (Auto) 0-4 /hpf (0-4) 09/22/21 04:39 U Hyaline Cast (Auto) 10-30 /lpf (0-5) H 09/22/21 04:39 U Epithel Cells (Auto) 5-10 /lpf (0-5) H 09/22/21 04:39 Urine Bacteria (Auto) 4+ (Negative) H 09/22/21 04:39 SARS-CoV-2, RNA, NAAT NEGATIVE (NEGATIVE) 09/22/21 Unknown Impressions Chest X-Ray 09/22/21 03:23 XR chest 1V portable CLINICAL HISTORY: Sepsis. COMPARISON STUDY: Chest radiograph September 25, 2020. FINDINGS: Lung volumes are normal. Lungs are clear. There is no pneumothorax or pleural effusion. Enlargement of the cardiac silhouette is unchanged. Mediastinal contours are stable. There is no evidence for pulmonary edema. IMPRESSION: No acute cardiopulmonary findings. No significant change in appearance of the chest. ACT 112: Negative or not required by law. Electronically signed by: Pavel Gorman M.D. 09/22/2021 6:53 AM Abdomen/Pelvis CT 09/22/21 05:39 CT OF THE ABDOMEN AND PELVIS WITH CONTRAST CLINICAL HISTORY: Flank pain. Evaluate for pyelonephritis. COMPARISON STUDY: None. TECHNIQUE: Following IV administration of Optiray, axial images of the abdomen and pelvis were obtained from the lung bases to the proximal femurs. Images were reviewed in the axial, sagittal, and coronal planes. IV contrast was administered without complication. Automated exposure control was utilized for the study. A dose lowering technique was utilized adhering to the principles of ALARA. CT DOSE: 2076.00 mGy.cm FINDINGS: This exam is compromised given body wall contacting the gantry. Therefore, the left anterior aspect of the abdomen is obscured on this examination. No definite pneumatosis, free air or portal venous gas is noted although sensitivity is diminished. Hepatic steatosis is noted. There is no biliary or pancreatic ductal dilatation. Pancreatic glandular atrophy is present. There is no peripancreatic or pericholecystic infiltration. Gallbladder is mildly distended without adjacent infiltration. Excreted contrast within the collecting systems, ureters and bladder decreases sensitivity for detection of urinary calculi however there is no hydronephrosis. No renal fluid collection is present. There is no significant perinephric infiltration. There is no evidence for a bowel obstruction. The appendix is normal. Sigmoid diverticulosis is noted without evidence for acute diverticulitis. No fluid collection is identified. There is no ascites. Postoperative findings within the lumbosacral spine are present. There is no lymphadenopathy. IMPRESSION: 1. No hydronephrosis. Unremarkable appearance of the kidneys. Decreased sensitivity for detection of calculi given excreted contrast. 2. Exam compromised given body wall contacting the gantry. No acute process identified within visualized portions of the abdomen or pelvis. 3. Hepatic steatosis. 4. No bowel obstruction. 5. Sigmoid diverticulosis without evidence for acute diverticulitis. ACT 112: Negative or not required by law. Electronically signed by: Pavel Gorman M.D. 09/22/2021 6:44 AM Diagnostic Findings EKG as per my interpretation rate 110, sinus tachycardia, normal axis, no ischemia
--- NOTE | 2021-09-22 07:09 | CT Scan Report ---
HEAD CT NONCONTRAST CT DOSE: 1280.08 mGy.cm HISTORY: Altered mental status. Fall. TECHNIQUE: Multiaxial CT images of the head were performed without the use of intravenous contrast. A utomated exposure control was utilized for this study. A dose lowering technique was utilized adheri ng to the principles of ALARA. Comparison: Head CT 09/25/2020. Findings: The paranasal sinuses and mastoid air cells are clear. The calvarium and skull base are int act. There is no mass, hematoma, midline shift, acute infarct. White matter hypodensity is nonspecifi c but suggestive of microvascular ischemic change. The ventricles and sulci demonstrate mild age-rela nydia involutional changes. Old punctate lacunar infarcts seen within the bilateral basal ganglia. Prom inent perivascular space inferior to the left basal ganglia, unchanged. Mild motion artifact. Impression: Mild motion artifact. No definite acute intracranial abnormality. ACT 112: Negative or not required by law. Electronically signed by: Obi Cullen M.D. 09/22/2021 7:08 AM
[2021-09-22] MEDS: oxyCODONE HCL IR 5 MG TAB (IMMEDIATE RELEASE) PO PRN ×3 (07:22→23:33)
[2021-09-22 08:18] LABS: Lyme Ab IgG w/WB Rflx Negative (Negative); Lyme Ab IgM w/WB Rflx Negative (Negative)
[2021-09-22] MEDS ORDERED: CARBOHYDRATES FOR HYPOGLYCEMIA PO PRN (09:26)
[2021-09-22] MEDS ORDERED: PROMETHAZINE HCL 12.5 MG in SODIUM CHLORIDE 0.9% 50 ML IV PRN (09:26)
[2021-09-22] MEDS ORDERED: DEXTROSE 50% 50 ML SYRINGE IV PRN (09:26)
[2021-09-22] MEDS ORDERED: GLUCOSE 10 TABS/TUBE PO PRN (09:26)
[2021-09-22] MEDS ORDERED: GLUCAGON FOR INJ 1 MG VIAL SQ PRN (09:26)
[2021-09-22] MEDS ORDERED: GLUCOSE 40% GEL 15 GM TUBE PO PRN (09:26)
--- NOTE | 2021-09-22 10:02 | Ultrasound Report ---
BILATERAL LOWER EXTREMITY VENOUS DOPPLER HISTORY: Bilateral leg swelling COMPARISON STUDY: None. FINDINGS: There is normal compressibility, flow, and augmentation within the bilateral lower extremit y deep venous systems. IMPRESSION: No DVT within the right or left lower extremity. ACT 112: Negative or not required by law. Electronically signed by: Obi Cullen M.D. 09/22/2021 10:00 AM
[2021-09-22] MEDS ORDERED: LOSARTAN POTASSIUM 50 MG TAB PO SCH (10:15)
[2021-09-22] MEDS: INSULIN ASPART PER UNIT SC SCH ×4 (11:28→20:26)
[2021-09-22] MEDS: INSULIN GLARGINE SOLOSTAR 100 UNITS/ML 3 ML PEN SC SCH (11:56)
[2021-09-22] MEDS: MULTIVITAMIN TAB PO SCH (11:57)
[2021-09-22] MEDS: methylPREDNISolone 4 MG TAB PO SCH (11:58)
[2021-09-22] MEDS: ENOXAPARIN INJ 40 MG/0.4 ML SYR SQ SCH (11:59)
[2021-09-22] MEDS: FOLIC ACID 1 MG TAB PO SCH (11:59)
--- NOTE | 2021-09-23 06:42 | Electrocardiogram Report ---
Test Reason : Blood Pressure : / mmHG Vent. Rate : 109 BPM Atrial Rate : 109 BPM P-R Int : 168 ms QRS Dur : 094 ms QT Int : 344 ms P-R-T Axes : 052 008 036 degrees QTc Int : 463 ms Sinus tachycardia Otherwise normal ECG When compared with ECG of 25-SEP-2020 17:57, No significant change Confirmed by Sherif Lovett ([id number]) on 09/23/2021 6:42:11 AM Referred By: REFERRED SELF Confirmed By:Sherif Lovett
[2021-09-23] MEDS: INSULIN ASPART PER UNIT SC SCH ×4 (08:23→21:33)
[2021-09-23] MEDS: oxyCODONE HCL IR 5 MG TAB (IMMEDIATE RELEASE) PO PRN ×2 (08:23→18:20)
[2021-09-23] MEDS: ENOXAPARIN INJ 40 MG/0.4 ML SYR SQ SCH (08:24)
[2021-09-23] MEDS: INSULIN GLARGINE SOLOSTAR 100 UNITS/ML 3 ML PEN SC SCH (08:24)
[2021-09-23] MEDS: MULTIVITAMIN TAB PO SCH ×2 (08:25→08:30)
[2021-09-23] MEDS: methylPREDNISolone 4 MG TAB PO SCH (08:25)
[2021-09-23] MEDS: FOLIC ACID 1 MG TAB PO SCH (08:25)
[2021-09-23] MEDS: LOSARTAN POTASSIUM 50 MG TAB PO SCH (08:25)
--- NOTE | 2021-09-23 09:09 | Hospitalist Progress Note ---
Date of Service September 23, 2021 Assessment & Plan (1) Sepsis: Plan: Immunocompromised patient hx seronegative polyarthritis on chronic steroid Rx Possible sources : RLE cellulitis rule out DVT Complicated UTI Bacteremia GNB 2/2 bottles, repeat BCx today Encephalopathy secondary to above Resolved after initial intervention Morbid Obesity BMI 53 hypertension, slightly elevated Hyperlipidemia statin Rx chronic back pain, at baseline DM2 on oral medications, suboptimal control as of outpatient hemoglobin A1c of 8.1, September 2021 Telemetry Vancomycin and Cefepime for cellulitis Cefepime for complicated UTI LE Dopplers-No DVT within the right or left lower extremity. Basal insulin, ISS BG goal 1 10-1 40, carb count coverage PT OT eval ID DVT prophylaxis Lovenox Full code Ms. Serenity Luciano (), contact #[phone] Mr. aMsood Luciano (son), contact #[phone]. ROS-No Headache, No Visual Changes, No Nausea, No Vomiting, No Fever, No Chills, No Neck Pain or Stiffness, No Chest Pain, No Palpitations, No SOB, No ALLRED, No Cough, No Sputum, No Wheezing, No Abdominal Pain, No Diarrhea, No Hematemesis, No Hemoptysis, No Unexpected Weight Loss, No Flank pain, No Melena, No Hematochezia, No Frequency, No Urgency, No Burning, No Hematuria, No Rashes, No Diaphoresis. Appetite is Normal, c/o leg swelling, fatigue Physical Exam Gen-AAO x 3, NAD, Afebrile, Obese Head-NCAT, EOMI, PERRLA, Anicteric Sclera, No Posterior Pharyngeal Erythema Neck-Supple, No JVD, No Thyromegaly, No Masses, No LAD, No Bruits Lungs-Clear to Auscultation Bilaterally, No Rales, No Rhonchi, No Wheezing, No Crepitus Chest-No S4, +S1, +S2, No S3, No Murmurs, No Rubs, No Gallops, No Ectopy Abdomen-Soft, Bowel Sounds Present, Non Tender, Non Distended, No Hepatomegaly, No Splenomegaly, No Palpable Masses, No Rebound, No Rigidity, No Guarding Musculoskeletal-Full Range of Motion Bilaterally, No CVAT Extremities-Bilateral LE swelling with erythema, minimal tenderness, petechiae over right leg, Chronic stasis changes Nuero-Cranial Nerves II-XII grossly intact, Motor WNL, DTRs WNL, Strength WNL, Non Focal Psych-Normal Mood Admission and Anticipated Discharge Date Admission Date: September 22, 2021 Subjective Patient seen, sititng up in bad, still feels awful, Informed him of +Blood Culture Results & Data Results & Data ([facility]) Vital Signs (Past 12 Hours) Vital Signs Temp Pulse Pulse Resp BP BP Pulse Ox 09/23/21 07:34 37.1 C 92 H 20 157/74 H 96 09/23/21 03:04 36.9 C 99 H 20 140/64 97 09/23/21 00:52 94 H 09/23/21 00:00 149/73 H 94 09/22/21 22:55 36.8 C 100 H 22 185/72 H 90 09/22/21 21:53 95 H Laboratory Results Reviewed
[2021-09-23] MEDS ORDERED: VANCOMYCIN CONSULT ACTIVE PRN (09:18)
[2021-09-23] MEDS ORDERED: VANCOMYCIN HCL 2,750 MG in SODIUM CHLORIDE 0.9% 500 ML IV STA (09:47)
[2021-09-23] MEDS: CEFEPIME 2,000 MG in SYRINGE 0 ML IV SCH ×2 (10:05→21:34)
[2021-09-23 10:09] LABS: Basophils # (auto) 0.02 K/uL (0-0.2); Basophils % (auto) 0.2 %; Eosinophils # (auto) 0.09 K/uL (0-0.5); Eosinophils % (auto) 0.7 %; Hematocrit (blood only) 43.1 % (42-52); Hemoglobin 13.8 g/dL (14.0-18.0); Immature Granulocytes # (auto) 0.02 K/uL (0.00-0.02); Immature Granulocytes % (auto) 0.2 %; Lymphocytes # (auto) 0.27 K/uL (1.2-3.4); Lymphocytes % (auto) 2.2 %; Mean Corpuscular Hemoglobin 31.2 pg (25-34); Mean Corpuscular Volume 97.5 fL (80-100); Mean Platelet Volume 8.2 fL (7.4-10.4); Monocytes # (auto) 0.92 K/uL (0.11-0.59); Monocytes % (auto) 7.6 %; Neutrophils # (auto) 10.71 K/uL (1.4-6.5); Neutrophils % (auto) 89.1 %; Platelet Count 226 K/uL (130-400); RDW Coefficient of Variation 15.1 % (11.5-14.5); RDW Standard Deviation 53.7 fL (36.4-46.3); Red Blood Count 4.42 M/uL (4.7-6.1); White Blood Count 12.03 K/uL (4.8-10.8)
--- NOTE | 2021-09-23 10:09 | Pharmacy Report ---
Pharmacy Vanc AUC Short Note - Date of Service September 23, 2021 - Assessment & Plan Assessment 75 year old M receiving Vancomycin and Cefepime for treatment of UTI, bacteremia and possible cellulitis. * PMHx significant for immunosuppression secondary to chronic steroid use and T2DM. * 24-hr Tmax of 37.8C. Leukocytosis of 20k. Renal fxn appears at baseline. Procal 0.91 ng/mL. * Concern for RLE cellulitis - covered with vanc and cefepime. UA suspicious for infection, urine culture growing gram negative bacilli - covered by cefepime. 1/4 bottles from blood cultures growing GNB as well (likely from urinary source; aerobic bottle). Repeat blood cultures pending. Plan Vancomycin * AUC/LAUREN is the preferred PK/PD target for vancomycin * AUC guided dosing is effective and associated with decreased risk of nephrotoxicity compared to traditional trough targets * Loading dose of 2750 mg IV x 1 * Maintenance dose of 1250 mg IV every 12 hours is expected to achieve steady state trough of 19 mcg/mL. * Trough will be ordered prior to the 1000 dose on 09/25/21 Cefepime * 2000 mg IV every 12 hours is appropriate Pharmacy will continue to follow and will adjust dose/frequency as necessary. Thank you.
[2021-09-23 11:09] LABS: BUN Creatinine Ratio 16.7 (10-20); Calcium 8.9 mg/dl (8.5-10.1); Creatinine Clr Calc Pharmacy 126.6 ml/min; Est GFR (African American) 100.7 ml/min; Est GFR (Non-African American) 86.9 ml/min; Potassium 3.8 mmol/L (3.5-5.1)
[2021-09-23] MEDS: ACETAMINOPHEN 325 MG TAB PO PRN (21:33)
[2021-09-23] MEDS: VANCOMYCIN HCL 1,250 MG in SODIUM CHLORIDE 0.9% 250 ML IV SCH (21:34)
[2021-09-24] MEDS: oxyCODONE HCL IR 5 MG TAB (IMMEDIATE RELEASE) PO PRN ×2 (07:41→21:20)
[2021-09-24] MEDS: INSULIN ASPART PER UNIT SC SCH ×4 (07:41→21:21)
[2021-09-24] MEDS: LOSARTAN POTASSIUM 50 MG TAB PO SCH (07:42)
[2021-09-24] MEDS: INSULIN GLARGINE SOLOSTAR 100 UNITS/ML 3 ML PEN SC SCH (07:42)
[2021-09-24] MEDS: FOLIC ACID 1 MG TAB PO SCH (07:42)
[2021-09-24] MEDS: ENOXAPARIN INJ 40 MG/0.4 ML SYR SQ SCH (07:43)
[2021-09-24] MEDS: methylPREDNISolone 4 MG TAB PO SCH (07:43)
[2021-09-24] MEDS: MULTIVITAMIN TAB PO SCH ×2 (07:43)
[2021-09-24] MEDS: VANCOMYCIN HCL 1,250 MG in SODIUM CHLORIDE 0.9% 250 ML IV SCH (10:05)
[2021-09-24] MEDS: CEFEPIME 2,000 MG in SYRINGE 0 ML IV SCH ×2 (10:05→17:51)
[2021-09-24 10:20] LABS: Hematocrit (blood only) 41.2 % (42-52); Hemoglobin 13.2 g/dL (14.0-18.0); Mean Corpuscular Hemoglobin 31.3 pg (25-34); Mean Corpuscular Volume 97.6 fL (80-100); Mean Platelet Volume 8.4 fL (7.4-10.4); Platelet Count 216 K/uL (130-400); RDW Standard Deviation 53.6 fL (36.4-46.3); Red Blood Count 4.22 M/uL (4.7-6.1); White Blood Count 7.76 K/uL (4.8-10.8)
[2021-09-24 10:44] LABS: BUN Creatinine Ratio 18.6 (10-20); Calcium 8.4 mg/dl (8.5-10.1); Est GFR (African American) 108.5 ml/min; Est GFR (Non-African American) 93.6 ml/min; Potassium 3.9 mmol/L (3.5-5.1)
--- NOTE | 2021-09-24 10:56 | Hospitalist Progress Note ---
Date of Service September 24, 2021 Assessment & Plan (1) Sepsis: Plan: Immunocompromised patient hx seronegative polyarthritis on chronic steroid Rx Possible sources : RLE cellulitis No DVT Complicated UTI-Polymicrobial, Pseudomonas and Proteus Bacteremia GNB 2/2 bottles, repeat BCx NGTD Encephalopathy secondary to above Resolved after initial intervention Morbid Obesity BMI 53 hypertension, slightly elevated Hyperlipidemia statin Rx chronic back pain, at baseline DM2 on oral medications, suboptimal control as of outpatient hemoglobin A1c of 8.1, September 2021 Telemetry Vancomycin and Cefepime for cellulitis Cefepime for complicated UTI await final S on Bacteria LE Dopplers-No DVT within the right or left lower extremity. Basal insulin, ISS BG goal 1 10-1 40, carb count coverage PT OT eval ID eval DVT prophylaxis Lovenox Full code Ms. Serenity Luciano (), contact #[phone] Mr. Masood Luciano (son), contact #[phone]. ROS-No Headache, No Visual Changes, No Nausea, No Vomiting, No Fever, No Chills, No Neck Pain or Stiffness, No Chest Pain, No Palpitations, No SOB, No ALLRED, No Cough, No Sputum, No Wheezing, No Abdominal Pain, No Diarrhea, No Hematemesis, No Hemoptysis, No Unexpected Weight Loss, No Flank pain, No Melena, No Hematochezia, No Frequency, No Urgency, No Burning, No Hematuria, No Rashes, No Diaphoresis. Appetite is Normal, c/o leg swelling, fatigue Physical Exam Gen-AAO x 3, NAD, Afebrile, Obese Head-NCAT, EOMI, PERRLA, Anicteric Sclera, No Posterior Pharyngeal Erythema Neck-Supple, No JVD, No Thyromegaly, No Masses, No LAD, No Bruits Lungs-Clear to Auscultation Bilaterally, No Rales, No Rhonchi, No Wheezing, No Crepitus Chest-No S4, +S1, +S2, No S3, No Murmurs, No Rubs, No Gallops, No Ectopy Abdomen-Soft, Bowel Sounds Present, Non Tender, Non Distended, No Hepatomegaly, No Splenomegaly, No Palpable Masses, No Rebound, No Rigidity, No Guarding Musculoskeletal-Full Range of Motion Bilaterally, No CVAT Extremities-Bilateral LE swelling with erythema, minimal tenderness, petechiae over right leg, Chronic stasis changes Nuero-Cranial Nerves II-XII grossly intact, Motor WNL, DTRs WNL, Strength WNL, Non Focal Psych-Normal Mood Admission and Anticipated Discharge Date Admission Date: September 22, 2021 Subjective Patient feeling a little better today Results & Data Results & Data ([facility]) Vital Signs (Past 12 Hours) Vital Signs Temp Pulse Pulse Resp BP Pulse Ox 09/24/21 09:27 95 09/24/21 07:40 89 09/24/21 07:35 36.4 C L 88 20 161/91 H 96 09/24/21 02:50 36.5 C 88 20 132/73 99 09/23/21 23:00 36.5 C 84 20 125/66 98
[2021-09-24] MEDS: tiZANidine HCL 4 MG TABLET PO SCH ×2 (14:01→21:13)
[2021-09-24] MEDS: VANCOMYCIN HCL 1,500 MG in SODIUM CHLORIDE 0.9% 500 ML IV SCH (21:14)
[2021-09-25] MEDS: CEFEPIME 2,000 MG in SYRINGE 0 ML IV SCH ×3 (01:43→18:26)
[2021-09-25] MEDS: oxyCODONE HCL IR 5 MG TAB (IMMEDIATE RELEASE) PO PRN ×3 (04:42→18:29)
[2021-09-25] MEDS: INSULIN GLARGINE SOLOSTAR 100 UNITS/ML 3 ML PEN SC SCH (08:00)
[2021-09-25] MEDS: INSULIN ASPART PER UNIT SC SCH ×4 (08:00→21:44)
[2021-09-25] MEDS: tiZANidine HCL 4 MG TABLET PO SCH ×3 (08:01→21:46)
[2021-09-25] MEDS: methylPREDNISolone 4 MG TAB PO SCH (08:01)
[2021-09-25] MEDS: MULTIVITAMIN TAB PO SCH (08:02)
[2021-09-25] MEDS: LOSARTAN POTASSIUM 50 MG TAB PO SCH (08:02)
[2021-09-25] MEDS: FOLIC ACID 1 MG TAB PO SCH (08:02)
[2021-09-25] MEDS: ENOXAPARIN INJ 40 MG/0.4 ML SYR SQ SCH (08:02)
[2021-09-25 08:32] LABS: Hemoglobin 13.1 g/dL (14.0-18.0); Mean Corpuscular Hemoglobin 31.1 pg (25-34); Mean Corpuscular Volume 97.4 fL (80-100); Mean Platelet Volume 8.4 fL (7.4-10.4); Platelet Count 245 K/uL (130-400); RDW Coefficient of Variation 14.9 % (11.5-14.5); RDW Standard Deviation 52.7 fL (36.4-46.3); Red Blood Count 4.21 M/uL (4.7-6.1); White Blood Count 8.38 K/uL (4.8-10.8)
[2021-09-25 09:00] LABS: BUN Creatinine Ratio 17.1 (10-20); Calcium 8.4 mg/dl (8.5-10.1); Est GFR (African American) 108.5 ml/min; Est GFR (Non-African American) 93.6 ml/min; Potassium 3.6 mmol/L (3.5-5.1)
[2021-09-25] MEDS ORDERED: ATORVASTATIN 10 MG TAB PO SCH (09:00)
[2021-09-25] MEDS ORDERED: VANCOMYCIN TROUGH ONE (09:30)
[2021-09-25 09:54] LABS: Creatinine Clr Calc Pharmacy 142.8 ml/min; Est GFR (African American) 106.1 ml/min; Est GFR (Non-African American) 91.5 ml/min
[2021-09-25] MEDS: VANCOMYCIN HCL 1,500 MG in SODIUM CHLORIDE 0.9% 500 ML IV SCH ×2 (10:29→21:46)
--- NOTE | 2021-09-25 11:35 | Pharmacy Report ---
Pharmacy Vanc AUC Short Note - Date of Service September 25, 2021 - Assessment & Plan Assessment 75 year old M receiving Vancomycin and Cefepime for treatment of UTI, bacteremia and possible cellulitis. Blood culture with PA, urine with proteus species - both sensitive to cefepime Day # 3 of antimicrobial therapy. Plan Vancomycin * AUC/LAUREN is the preferred PK/PD target for vancomycin * AUC guided dosing is effective and associated with decreased risk of nephrotox icity compared to traditional trough targets * Trough level came back at ~10 mcg/ml - this vancomycin dosing is associated with AUC/LAUREN of 400-500 which is appropriate for cellulitis * Plan to continue same vancomycin dosing for now as likely patient will accumulate over time due to BMI > 35 kg/m2 * Will repeat level in next 1-2 days to assess for accumulation Pharmacy will continue to follow and will adjust dose/frequency as necessary. Thank you.
--- NOTE | 2021-09-25 13:00 | Hospitalist Progress Note ---
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 Basal insulin, ISS BG goal 1 10-1 40, carb count coverage PT OT eval DVT prophylaxis Lovenox Full code Ms. Serenity Luciano (), contact #[phone] Mr. Masood Luciano (son), contact #[phone]. ROS-No Headache, No Visual Changes, No Nausea, No Vomiting, No Fever, No Chills, No Neck Pain or Stiffness, No Chest Pain, No Palpitations, No SOB, No ALLRED, No Cough, No Sputum, No Wheezing, No Abdominal Pain, No Diarrhea, No Hematemesis, No Hemoptysis, No Unexpected Weight Loss, No Flank pain, No Melena, No Hematochezia, No Frequency, No Urgency, No Burning, No Hematuria, No Rashes, No Diaphoresis. Appetite is Normal, c/o leg swelling, fatigue Physical Exam Gen-AAO x 3, NAD, Afebrile, Obese Head-NCAT, EOMI, PERRLA, Anicteric Sclera, No Posterior Pharyngeal Erythema Neck-Supple, No JVD, No Thyromegaly, No Masses, No LAD, No Bruits Lungs-Clear to Auscultation Bilaterally, No Rales, No Rhonchi, No Wheezing, No Crepitus Chest-No S4, +S1, +S2, No S3, No Murmurs, No Rubs, No Gallops, No Ectopy Abdomen-Soft, Bowel Sounds Present, Non Tender, Non Distended, No Hepatomegaly, No Splenomegaly, No Palpable Masses, No Rebound, No Rigidity, No Guarding Musculoskeletal-Full Range of Motion Bilaterally, No CVAT Extremities-Bilateral LE swelling with erythema, minimal tenderness, petechiae over right leg, Chronic stasis changes Nuero-Cranial Nerves II-XII grossly intact, Motor WNL, DTRs WNL, Strength WNL, Non Focal Psych-Normal Mood Admission and Anticipated Discharge Date Admission Date: September 22, 2021 Subjective Patient feeling a little better today Results & Data Results & Data ([facility]) Vital Signs (Past 12 Hours) Vital Signs Temp Pulse Pulse Resp BP Pulse Ox 09/25/21 11:10 36.4 C L 80 20 159/93 H 95 09/25/21 07:41 36.9 C 80 20 157/87 H 97 09/25/21 07:12 85 09/25/21 03:11 36.5 C 83 20 140/59 L 94
[2021-09-26] MEDS: oxyCODONE HCL IR 5 MG TAB (IMMEDIATE RELEASE) PO PRN ×2 (00:42→07:35)
[2021-09-26] MEDS: CEFEPIME 2,000 MG in SYRINGE 0 ML IV SCH ×2 (01:40→08:54)
[2021-09-26] MEDS: ACETAMINOPHEN 325 MG TAB PO PRN (04:17)
[2021-09-26 06:18] LABS: Hematocrit (blood only) 42.2 % (42-52); Hemoglobin 13.3 g/dL (14.0-18.0); Mean Corpuscular Hemoglobin 30.8 pg (25-34); Mean Corpuscular Hgb Conc 31.5 g/dL (32-36); Mean Corpuscular Volume 97.7 fL (80-100); Mean Platelet Volume 8.3 fL (7.4-10.4); Platelet Count 235 K/uL (130-400); RDW Coefficient of Variation 14.8 % (11.5-14.5); RDW Standard Deviation 52.9 fL (36.4-46.3); Red Blood Count 4.32 M/uL (4.7-6.1); White Blood Count 10.71 K/uL (4.8-10.8)
[2021-09-26 06:45] LABS: Albumin Globulin Ratio 1.3 (0.9-2); Albumin Level 3.9 gm/dl (3.4-5.0); BUN Creatinine Ratio 15.6 (10-20); Bilirubin,Total 0.6 mg/dl (0.2-1.0); Calcium 8.5 mg/dl (8.5-10.1); Creatinine Clr Calc Pharmacy 137.3 ml/min; Est GFR (African American) 104.3 ml/min; Globulin 2.9 gm/dl (2.5-4.0); Potassium 3.8 mmol/L (3.5-5.1); Total Protein 6.8 gm/dl (6.0-8.3)
[2021-09-26] MEDS: ENOXAPARIN INJ 40 MG/0.4 ML SYR SQ SCH (07:32)
[2021-09-26] MEDS: methylPREDNISolone 4 MG TAB PO SCH (07:33)
[2021-09-26] MEDS: tiZANidine HCL 4 MG TABLET PO SCH (07:33)
[2021-09-26] MEDS: MULTIVITAMIN TAB PO SCH (07:33)
[2021-09-26] MEDS: FOLIC ACID 1 MG TAB PO SCH (07:33)
[2021-09-26] MEDS: LOSARTAN POTASSIUM 50 MG TAB PO SCH (07:33)
[2021-09-26] MEDS: INSULIN GLARGINE SOLOSTAR 100 UNITS/ML 3 ML PEN SC SCH (08:50)
[2021-09-26] MEDS: INSULIN ASPART PER UNIT SC SCH ×2 (08:51→11:47)
[2021-09-26] MEDS: VANCOMYCIN HCL 1,500 MG in SODIUM CHLORIDE 0.9% 500 ML IV SCH (08:54)
--- NOTE | 2021-09-26 09:44 | Discharge Summary ---
Date of Service September 26, 2021 Admission HPI Per Admitting Provider History obtained from patient, family, and records. Medical history significant for seronegative polyarthritis on chronic steroid Rx, hypertension, hyperlipidemia, chronic back pain status post surgery, DM2 on oral medications. Patient not well the last few days as per son. Little unstable on his feet causing him to fall down a week ago. Some bruising noted. Patient denies chest pain, LOC, headache, LOC. About 2 days ago, patient noted to have fever at home with generalized weakness. Right leg more swollen than usual. Patient somewhat confused as per son. No abdominal pain, diarrhea or dysuria symptoms. Patient brought to the ER for evaluation. Ceftriaxone given at the ER for sepsis. Patient mentation significantly improved after initial ER intervention as per son. Medical History as above Surgical History : Tonsillectomy/adenoidectomy, multiple back surgeries Family History : Parkinson's disease, lung cancer Personal/Social history : Non-smoker, occasional EtOH intake, lives with Admission Exam Per Admitting Provider GENERAL: Comfortable, pleasant, morbidly obese, no respiratory distress SKIN: Normal color, warm HEENT: [place] palpebral conjunctivae, no ptosis, healing contusion, left periorbital area, dry buccal mucosa NECK : Supple, short neck, no tenderness CHEST : Decreased breath sounds, no tenderness HEART : Tachycardic, no obvious murmurs ABDOMEN: distention, nontender EXTREMITIES : Bilateral LE swelling with erythema, minimal tenderness, petechiae over right leg, no other conspicuous deformities noted NEUROLOGIC : Coherent, no facial asymmetry, no other gross focality Principal Diagnosis Sepsis: Immunocompromised patient hx seronegative polyarthritis RLE cellulitis Complicated UTI-Polymicrobial, Pseudomonas and Proteus Pansensitive Bacteremia Encephalopathy Morbid Obesity hypertension Hyperlipidemia chronic back pain DM2 Discharge Exam see below Discharge Data Allergies Allergy/AdvReac Type Severity Reaction Status Date / Time No Known Allergies Allergy Unknown Verified 09/22/21 08:44 NONSTEROIDAL AdvReac Unknown NO NSAIDS Uncoded 09/22/21 08:[address] HUNT ON 12/06/03 Consultations 09/22/21 05:54 ED Decision to Admit Stat 09/25/21 12:56 Consult Infectious Diseases Routine Ordered Studies 09/22/21 03:24 CT head/brain wo con Urgent 09/22/21 05:39 CT abd pelvis IV con only Stat 09/22/21 06:57 US venous doppler LE BI Urgent Current Diagnoses Sepsis, unspecified organism (09/22/21) Allergies No Known Allergies Allergy (Unknown, Verified 09/22/21 08:44) NONSTEROIDAL Adverse Reaction (Unknown, Uncoded 09/22/21 08:44) NO NSAIDS PER DR. HUNT ON 12/06/03 Height/Weight/Isolation Height 5 ft 11 in Weight 171 kg Chemistry 09/24/21 09/25/21 09/25/21 10:01 07:57 09:12 Sodium 133 L 135 L Potassium 3.9 3.6 Chloride 100 99 Carbon Dioxide 27 27 Anion Gap 6 9 BUN 13 12 Creatinine 0.70 0.70 0.74 Glucose 147 H 134 H 09/26/21 05:54 Sodium 135 L Potassium 3.8 Chloride 99 Carbon Dioxide 27 Anion Gap 9 BUN 12 Creatinine 0.77 Glucose 123 H Microbiology 09/23/21 09:51 Blood Aerobic Blood Culture - Preliminary No growth in Aerobic bottle after 48 hours. 09/23/21 09:51 Blood Anaerobic Blood Culture - Preliminary No growth in Anaerobic bottle after 48 hours. 09/23/21 09:44 Blood Aerobic Blood Culture - Preliminary No growth in Aerobic bottle after 48 hours. 09/23/21 09:44 Blood Anaerobic Blood Culture - Preliminary No growth in Anaerobic bottle after 48 hours. 09/22/21 04:43 Blood Aerobic Blood Culture - Preliminary Pseudomonas aeruginosa 09/22/21 04:43 Blood Anaerobic Blood Culture - Preliminary No growth in Anaerobic bottle after 48 hours. 09/22/21 04:39 Urine,Clean Catch Urine Culture - Final Proteus mirabilis 09/22/21 03:54 Blood Aerobic Blood Culture - Preliminary No growth in Aerobic bottle after 48 hours. 09/22/21 03:54 Blood Anaerobic Blood Culture - Preliminary No growth in Anaerobic bottle after 48 hours. Hospital Course (1) Sepsis: Immunocompromised patient hx seronegative polyarthritis on chronic steroid Rx Possible sources : RLE cellulitis No DVT Complicated UTI-Polymicrobial, Pseudomonas and Proteus Pansensitive Bacteremia GNB 2/2 bottles, repeat BCx NGTD, DC ID eval, Wound saw patient and has Appt for F/U Final Abx regimen for UTI, Cellulitis and Bacteremia, Cipro and Doxy x 10 days Encephalopathy secondary to above Resolved after initial intervention Morbid Obesity BMI 53 hypertension, slightly elevated Hyperlipidemia statin Rx chronic back pain, at baseline DM2 on oral medications LE Dopplers-No DVT within the right or left lower extremity. Basal insulin, ISS BG goal 1 10-1 40, carb count coverage PT OT DVT prophylaxis Lovenox Full code Ms. Serenity Luciano (), contact #[phone] Mr. Masood Luciano (son), contact #[phone]. ROS-No Headache, No Visual Changes, No Nausea, No Vomiting, No Fever, No Chills, No Neck Pain or Stiffness, No Chest Pain, No Palpitations, No SOB, No ALLRED, No Cough, No Sputum, No Wheezing, No Abdominal Pain, No Diarrhea, No Hematemesis, No Hemoptysis, No Unexpected Weight Loss, No Flank pain, No Melena, No Hematochezia, No Frequency, No Urgency, No Burning, No Hematuria, No Rashes, No Diaphoresis. Appetite is Normal, c/o leg swelling, fatigue Physical Exam Gen-AAO x 3, NAD, Afebrile, Obese Head-NCAT, EOMI, PERRLA, Anicteric Sclera, No Posterior Pharyngeal Erythema Neck-Supple, No JVD, No Thyromegaly, No Masses, No LAD, No Bruits Lungs-Clear to Auscultation Bilaterally, No Rales, No Rhonchi, No Wheezing, No Crepitus Chest-No S4, +S1, +S2, No S3, No Murmurs, No Rubs, No Gallops, No Ectopy Abdomen-Soft, Bowel Sounds Present, Non Tender, Non Distended, No Hepatomegaly, No Splenomegaly, No Palpable Masses, No Rebound, No Rigidity, No Guarding Musculoskeletal-Full Range of Motion Bilaterally, No CVAT Extremities-Bilateral LE swelling with erythema, minimal tenderness, petechiae over right leg, Chronic stasis changes Nuero-Cranial Nerves II-XII grossly intact, Motor WNL, DTRs WNL, Strength WNL, Non Focal Psych-Normal Mood Total Time Total Time Spent Total Time Spent (In Minutes): 45 mins Total Time Includes: Examination of the Patient, Discharge Planning, Medication Reconciliation and Communication With Other Providers Discharge Plan Discharge Items Patient Disposition: Home - Self-Care Reason For Visit: SEPSIS Discharge Diagnosis: Sepsis: Immunocompromised patient hx seronegative polyarthritis RLE cellulitis Complicated UTI-Polymicrobial, Pseudomonas and Proteus Pansensitive Bacteremia Encephalopathy Morbid Obesity hypertension Hyperlipidemia chronic back pain DM2 Condition on Discharge: Good Health Concerns: Resolution of Cellulitis Activity: Resume your previous activity Lifting: Gradually increase as tolerated Bathing: No limitations Sexual Activity: When tolerated Exercise/Sports: Gradually increase as tolerated Driving/Machine Use: No limitations Weightbearing: Full weightbearing Non-emergency contact: Primary Care Provider Call non-emergency contact if: you have any medication questions Follow-up/Referrals: Jasper Thornton [Primary Care Provider] - Diet: Carb Consistent or DM2 and Heart Healthy Addtl Attending Provider Instructions: Follow up in Wound Clinic Pending Studies at Discharge: No Stand-Alone Forms: [facility] [employer], Smoking Cessation Medications and DC Order Prescriptions: New folic acid 1 mg Tablet 1 mg PO DAILY Qty: 30 RF: 0 multivitamin with folic acid [Daily-Criss (with folic acid)] 400 mcg Tablet 1 tab PO QAM Qty: 30 RF: 0 ciprofloxacin HCl [Cipro] 500 mg tablet 500 mg PO BID Qty: 20 RF: 0 doxycycline monohydrate 100 mg capsule 100 mg PO BID 10 Days Qty: 20 RF: 0 Continued cholecalciferol (vitamin D3) 125 mcg (5,000 unit) capsule 125 mcg PO DAILY RF: 0 oxycodone-acetaminophen 5-325 mg tablet 1 tab PO UD PRN (Reason: Pain) RF: 0 metformin 500 mg tablet 500 mg PO DAILY RF: 0 metolazone 2.5 mg tablet 2.5 mg PO DAILY RF: 0 losartan 50 mg tablet 50 mg PO DAILY RF: 0 multivitamin [Daily Multi-Vitamin] Tablet 1 tab PO DAILY RF: 0 methylprednisolone 4 mg tablet 6 mg PO DAILY RF: 0 calcium carbonate-vitamin D3 500mg (1,250mg) -600 unit Tablet 1 tab PO DAILY RF: 0 tizanidine 4 mg tablet 4 mg PO UD RF: 0 atorvastatin 10 mg tablet 10 mg PO 3XWK RF: 0 Discharge Orders: Discharge Order (Routine); Ordered 09/26/21 Ordered By: Guillermo Victor Admission Data Admit Date/Time: 09/22/21 07:11 Attending Provider: Guillermo Victor Admit Provider: Davide Silverio Primary Care Provider: Jasper Thornton Other Providers: Davide Silverio ; Mike Vega ; Tamia Abreu ; Bishop Real I. ; Huseyin Goetz II ; Nakia Hu ; Pal Salazar ; Tavares Carcamo ; [facility]
== END 2021-09-26 12:35 | disposition home or self-care (01) | DRG 871 ==
LOC: ED 02:46 → EDINP 07:11 → 2W 19:00

== ENCOUNTER 2024-07-13 07:43 | Inpatient (IN) ==
--- NOTE | 2024-06-23 09:26 | PAT Medication Instructions ---
Medication Instructions Date of Service June 23, 2024 Home Medications oxycodone-acetaminophen 5 mg-325 mg tablet 1 tab PO TID PRN atorvastatin 10 mg tablet 10 mg PO 3XWK finasteride 5 mg tablet 5 mg PO QPM metformin 500 mg tablet 1,000 mg PO QPM calcium 600 mg capsule 600 mg PO QAM cholecalciferol (vitamin D3) 50 mcg (2,000 unit) tablet (Vitamin D3) 50 mcg PO BID cyclobenzaprine 10 mg tablet 10 mg PO BID folic acid 1 mg tablet 1 mg PO UD furosemide 40 mg tablet (Lasix) 40 mg PO QAM ibuprofen-diphenhydramine citrate 200 mg-38 mg tablet (Advil PM) 1 cap PO HS PRN losartan 100 mg tablet 100 mg PO QAM methotrexate sodium 2.5 mg tablet 2.5 mg PO UD multivitamin 1 tab PO QAM olopatadine 0.2 % eye drops 1 drp ophthalmic (eye) DAILY PRN pseudoephedrine HCl 30 mg tablet (Sudafed) 30 mg PO Q6H PRN sodium chloride 0.65 % nasal mist 1 spray intranasal BID PRN upadacitinib 15 mg tablet,extended release 24 hr (Rinvoq) 15 mg PO QAM vitamin A-vitamin C-vit E-min tablet 1 tab PO HS STOP 7 days before surgery methotrexate sodium 2.5 mg tablet 2.5 mg PO UD Continue as directed atorvastatin 10 mg tablet 10 mg PO 3XWK olopatadine 0.2 % eye drops 1 drp ophthalmic (eye) DAILY PRN(if needed) ASK your surgeon for instructions ibuprofen-diphenhydramine citrate 200 mg-38 mg tablet (Advil PM) 1 cap PO HS PRN ASK your prescriber and surgeon upadacitinib 15 mg tablet,extended release 24 hr (Rinvoq) 15 mg PO QAM STOP taking 2 weeks before surgery (or as soon as possible if surgery is within 2 weeks) vitamin A-vitamin C-vit E-min tablet 1 tab PO HS DO NOT take the morning of surgery calcium 600 mg capsule 600 mg PO QAM cholecalciferol (vitamin D3) 50 mcg (2,000 unit) tablet (Vitamin D3) 50 mcg PO BID folic acid 1 mg tablet 1 mg PO UD furosemide 40 mg tablet (Lasix) 40 mg PO QAM losartan 100 mg tablet 100 mg PO QAM multivitamin 1 tab PO QAM pseudoephedrine HCl 30 mg tablet (Sudafed) 30 mg PO Q6H PRN Take morning of surgery With a small sip of water, OTHERWISE NOTHING TO EAT OR DRINK AFTER MIDNIGHT: oxycodone-acetaminophen 5 mg-325 mg tablet 1 tab PO TID PRN(if needed) cyclobenzaprine 10 mg tablet 10 mg PO BID sodium chloride 0.65 % nasal mist 1 spray intranasal BID PRN(if needed) Take evening before surgery oxycodone-acetaminophen 5 mg-325 mg tablet 1 tab PO TID PRN(if needed) finasteride 5 mg tablet 5 mg PO QPM metformin 500 mg tablet 1,000 mg PO QPM cholecalciferol (vitamin D3) 50 mcg (2,000 unit) tablet (Vitamin D3) 50 mcg PO BID cyclobenzaprine 10 mg tablet 10 mg PO BID pseudoephedrine HCl 30 mg tablet (Sudafed) 30 mg PO Q6H PRN(if needed) sodium chloride 0.65 % nasal mist 1 spray intranasal BID PRN(if needed) Other Notes If you have any questions please call us at [phone] or [phone] or [phone] or [phone]
--- NOTE | 2024-06-25 08:45 | Anesthesiology Consultation ---
Date of Service June 25, 2024 Assessment & Plan (1) Encounter for pre-operative examination: Chart Review Chart Review: Acceptable Risk for Surgery (pending surgeon ordered PCP clearance ) and Patient seen in Pre Admission Testing - Awaiting PCP clearance- Dr. Victoria Thornton - 07/07/24 (please send preop testing for PCP review per patient) Grade I anterolisthesis of C3 over C4 and C4 over C5 per 06/25/24 c-spine x ray - Check BSG AM DOS Per PAT appt on 06/25/24, no recent illness/disease exposures, illness related symptoms, or recent illness/disease positive tests. Will leave to surgeon's discretion if preop Covid testing needed Teaching & Discussion Pre-Anesthesia Teaching/Discussion Notes: Instructed NPO after midnight before surgery,except medications with 15 cc of water. Medication instructions provided according to the [facility] guidelines. History Surgery Operation Date: 07/13/24 10:05 Proposed Procedures p L3-L4 Decompression and Fusion, L4-L5 Hardware Removal, Spinal Cord Monitoring - [place] DO Height/Weight Height: 5 ft 11 in Weight: 146.2 kg Allergies Allergy/AdvReac Type Severity Reaction Status Date / Time No Known Allergies Allergy Unknown Verified 10/11/21 10:21 Medications Home Medications Medication Instructions Recorded Confirmed Last Taken oxycodone-acetaminophen 5 mg-325 1 tab PO TID PRN Pain 09/23/19 06/17/24 09/25/20 mg tablet atorvastatin 10 mg tablet 10 mg PO 3XWK 09/22/21 06/17/24 Unknown finasteride 5 mg tablet 5 mg PO QPM 10/11/21 06/17/24 Unknown metformin 500 mg tablet 1,000 mg PO QPM 10/11/21 06/17/24 Unknown calcium 600 mg capsule 600 mg PO QAM 06/17/24 06/17/24 Unknown cholecalciferol (vitamin D3) 50 50 mcg PO BID 06/17/24 06/17/24 Unknown mcg (2,000 unit) tablet (Vitamin D3) cyclobenzaprine 10 mg tablet 10 mg PO BID 06/17/24 06/17/24 Unknown folic acid 1 mg tablet 1 mg PO UD 06/17/24 06/17/24 Unknown furosemide 40 mg tablet (Lasix) 40 mg PO QAM 06/17/24 06/17/24 Unknown ibuprofen-diphenhydramine citrate 1 cap PO HS PRN Sleep 06/17/24 06/17/24 Unknown 200 mg-38 mg tablet (Advil PM) losartan 100 mg tablet 100 mg PO QAM 06/17/24 06/17/24 Unknown methotrexate sodium 2.5 mg tablet 2.5 mg PO UD 06/17/24 06/17/24 Unknown multivitamin 1 tab PO QAM 06/17/24 06/17/24 Unknown olopatadine 0.2 % eye drops 1 drp ophthalmic (eye) DAILY PRN 06/17/24 06/17/24 Unknown as needed pseudoephedrine HCl 30 mg tablet 30 mg PO Q6H PRN Congestion 06/17/24 06/17/24 Unknown (Sudafed) sodium chloride 0.65 % nasal mist 1 spray intranasal BID PRN 06/17/24 06/17/24 Unknown Congestion upadacitinib 15 mg tablet,extended 15 mg PO QAM 06/17/24 06/17/24 Unknown release 24 hr (Rinvoq) vitamin A-vitamin C-vit E-min 1 tab PO HS 06/17/24 06/17/24 Unknown tablet Past Medical History Medical History (Updated 06/25/24 @ 09:21 by Maria Isabel Guerra PA-C) Back injury 1990 & 2003>spinal fx BPH (benign prostatic hyperplasia) Candidiasis of skin To axillary area- has cream- uses PRN- no significant issues at this time per patient Chronic pain syndrome COVID-19 virus infection 2020- hospitalized 2021- symptoms completely resolved Diabetes mellitus, type 2 Diabetic neuropathy associated with diabetes mellitus due to underlying condition Bilateral feet HLD (hyperlipidemia) Hypertension Lymphedema to bilateral LEs- followed by PCP Morbid obesity Polymyalgia rheumatica Follows with rheum Rheumatoid arthritis Follows with rheum Right knee pain Gets gel injections Sleep apnea cpap device has been recalled (has not had for 2 years) Exercise / Class Metabolic Activity III < 4 Walking/Shop/Light housework (one flight of stairs (spiral stairs)- goes very slow - no chest pain or SOB ) Past Family History Family History Other No family history of adverse response to anesthesia Past Surgical History Surgical History History of appendectomy History of colonoscopy History of lumbar spinal fusion 1993 and 2003 (titanium in lumbar area) History of tonsillectomy History of tooth extraction Hx of vasectomy Past Anesthesia History No Hx of Anesthesia Complications and No Family Hx of Anesthesia Complications History of PONV No Hx of PONV and No Hx of Motion Sickness Social History Smoking Status: Never smoker Do You Dip or Chew Tobacco: No (quit 1993) Hx Alcohol Use: Yes Alcohol type: beer alcohol intake frequency: holidays/special occasions only Hx Substance Use: No Review of Systems Patient denies chest pain, shortness of breath, dyspnea on exertion, reflux, cough, wheezing, palpitations. No hx of seizures, stroke, PA. No hx of blood clots or blood transfusions Physical Exam Vital Signs VITALS BP 150/92 (manually) P 72 TEMP 97.7 SP02 97% RESP 16 Constitutional no acute distress ENMT Mouth: no TMJ clicking Thyromental Distance: > or= 3.5 Finger Breadths (3.5 (difficult to palpate)) Mallampati Class: III Missing molars Neck + thick neck and + limited neck extension Respiratory normal respiratory effort; no respiratory distress Auscultation: lungs clear to auscultation bilaterally; no wheezes Cardiovascular Rate/Rhythm: regular rate and regular rhythm Heart Sounds: no murmur Vessels: no carotid bruit Musculoskeletal Spine: no pain with cervical ROM Extremities: extremities normal to inspection Psychiatric Orientation: alert Lab Results Anesthesia Preop Results Results Anesthesia Widget: WBC 7.58 K/ul (4.8-10.8) 06/25/24 Hgb 14.8 g/dl (14.0-18.0) 06/25/24 Hct 44.4 % (42.0-52.0) 06/25/24 Plt 242 K/uL (130-400) 06/25/24 Na 139 mmol/L (136-145) 06/25/24 K 4.4 mmol/L (3.5-5.1) 06/25/24 Cl 103 mmol/L (98-107) 06/25/24 CO2 29 mmol/L (21-32) 06/25/24 BUN 19 mg/dl (6-23) 06/25/24 Creat 0.88 mg/dl (0.6-1.4) 06/25/24 Glucose Level 128 mg/dl (70-99(Fasting)) H 06/25/24 PT 11.4 Seconds (9.0-12.0) 06/25/24 PTT 28 Seconds (21-31) 06/25/24 INR 1.1 (0.9-1.1) 06/25/24 HA1c 6.9 % (4.5-5.6) H 06/25/24 Urine Color Yellow 06/25/24 Urine Appearance Clear (Clear) 06/25/24 Urine pH 7.0 (4.5-7.5) 06/25/24 Urine Specific [place] 1.024 (1.000-1.030) 06/25/24 Urine Protein Trace (Negative) H 06/25/24 Urine Glucose (UA) Negative (Negative) 06/25/24 Urine Ketones Negative (Negative) 06/25/24 Urine Blood Negative (Negative) 06/25/24 Urine Nitrite Negative (Negative) 06/25/24 Urine Bilirubin Negative (Negative) 06/25/24 Urine Urobilinogen Negative (Negative) 06/25/24 Urine Leukocyte Esterase 1+ (Negative) H 06/25/24 Urine WBC (Auto) >50 /hpf (0-5) H 06/25/24 Urine RBC (Auto) 0-2 /hpf (0-2) 06/25/24 Urine Hyaline Casts (Auto) 0-2 /lpf (0-2) 06/25/24 Urine Epithelial Cells (Auto) 0-2 /hpf (0-2) 06/25/24 Urine Bacteria (Auto) None Seen (None Seen) 06/25/24 Blood Type O Positive 06/25/24 Antibody Screen NEGATIVE 06/25/24 Testing Electrocardiogram Date: 06/25/24 Findings: + NSR @ (67bpm) Normal EKG per cardio Chest X-Ray Date: 06/25/24 FINDINGS: Lung volumes are normal. Lungs are clear. There is no pneumothorax or pleural effusion. Cardiomegaly is unchanged. Mediastinal contours are stable. There is no evidence for pulmonary edema. IMPRESSION: No acute cardiopulmonary findings. Stable cardiomegaly. Cervical Spine Date: 06/25/24 IMPRESSION: Osteopenia. Grade I anterolisthesis of C3 over C4 and C4 over C5. No evidence of instability on the flexion-extension views. [id number] cervical spondylosis. (Discussed with Dr Fay- will note anterolisthesis at top of chart to make anesthesiologist aware DOS; preop testing will also be faxed to PCP for continuity of care)
--- OUTSIDE RECORDS SUMMARY | 2024-07-13 08:25 | External Medical Summary | Summary of Care ---
Author Name Unknown Organization [facility] Address [address] [place] [address] Phone [phone] Care Team Providers Care Haul Driver Name Role Phone Daniela Thornton MD Primary Care Provider [phone] Reason for Visit * Reason Onset Date Comments Advice 06/30/2024 advice Encounter Details Date Type Department Care Team (Late st Contact Info) Description 06/30/[address] [facility] [address] [place] [address] Bayron Hung CRNP [address] [place] [address] Advice (advice) Allergies No known active allergiesdocumented as of this encounter (statuses as of 06/30/2024) Medications OXYCODONE-ACETA MINOPHEN 5-325 MG PO TABS one to two tablets twice daily as needed Active CALCIUM + D 600-200 MG-UNIT PO TABS 1 tablet every other day Active Cholecalciferol (VITAMIN D3) 5000 UNITS Tablet Take 1 Capsule by mouth in the morning. Active tiZANidine (ZANAFLEX) 4 MG Tablet As needed 10/26/2016 Active traZODone (DESYREL) 100 MG Tablet 1 with evening meal,2 at bedtime 0 03/28/2017 Active Metformin HCl ER, MOD, 500 MG TB24 Take 2 Tablets by mouth in the morning. Active metOLazone 2.5 MG Oral Tablet Take 1 Tablet by mouth. 1 weekly as needed Active atorvaSTATin (LIPITOR) 10 MG Tablet 1 three times weekly 10/23/2017 Active furosemide (LASIX) 40 MG Tablet Take 1 Tablet by mouth in the morning. 0 12/07/2017 Active losartan (COZAAR) 50 MG Tablet Take 2 Tablets by mouth in the morning. 1 daily. Active Multiple Vitamins-Minera ls (OCUVITE ADULT 50+) Capsule Take by mouth. 1 daily Active Multiple Vitamin (MULTIVITAMINS) Capsule Take by mouth daily. daily Active neomycin-polymy clark-dexameth (MAXITROL) [id number] OINT Instill into the left eye 4 times a day. Active Olopatadine HCl 0.1 % Ophthalmic Solution Instill 1 Drop into eye. Active Ascorbic Acid 1000 MG Oral Tablet Active methylPREDNISol one 4 MG Oral Tablet (Medrol) Take 1 & 1/2 tablets by mouth daily 135 Tablet 1 12/25/2022 Active Finasteride 5 MG Oral Tablet (Proscar) 1 daily 03/12/2023 Active SITagliptin Phosphate 50 MG Oral Tablet (Januvia) Active Folic Acid 1 MG Oral Tablet Take 1 Tab by mouth daily. 90 day supply 90 Tablet 4 05/17/2023 Active Methotrexate Sodium 2.5 MG Oral Tablet Take 8 tablets by mouth at one time every week 104 Tablet 1 06/05/2024 Active Rinvoq 15 MG Oral Tablet Extended Release 24 Hour (Upadacitinib ER)Indications: Seronegative arthritis Take 1 Tablet by mouth daily. 90 Tablet 1 06/05/2024 Active documented as of this encounter (statuses as of 06/30/2024) Active Problems Problem Noted Date Diagnosed Date Seronegative rheumatoid arthritis 07/10/2019 Mixed hyperlipidemia 06/30/2019 Thrombocytopenia 11/14/2018 Seronegative arthritis 09/02/2017 Encounter for long-term (current) use of medicat ions 09/02/2017 halfway current use of systemic steroids 10/29 DDD (degenerative disc disease), lumbar 10/30/19 17 PMR (polymyalgia rheumatica) 01/18/2015 Obesity, morbid (more than 1 00 lbs over ideal weight or BMI > 40) 11/08/2009 Overview (10/31/2015): Per Obesity Taxonomy ICD-10 update of inactive term Hypersomnia with sleep apnea 09/28/2008 Contact dermatitis due to furs 09/28/2008 Overview (12/13/2020): ICD-10 update of inactive term MILTON [employer]EARCH OTHER*[id number] 04/26/2008 Organic sleep disorder 01/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 Morbid obesity, BMI not known 11/08/2009 Overview (11/08/2009): Per Obesity Taxonomy documented as of this encounter (statuses as of 06/30/2024) Immunizations Name Administration Dates Next Due COVID-19 mRNA, LNP-s, No Pre serve, 2-Dose Series (Pfizer) 04/20/2021,10/31/2020,09/19/2020 Season Influenza, Quad, PF, Adjuvanted, 65+ Yrs, IM (FLUAD) 07/09/2023,06/14/2020 Seasonal Influenza, High Dos e, Trivalent, PF, IM (Fluzone HD) 06/08/2019,06/12/2018,06/13/2017 Seasonal Influenza, Quadriva lent Hd (Fluzone Hd) 06/07/2021 documented as of this encounter Social History Tobacco Use Types Packs/Day Years Used Date Smoking Tobacco: Never Smokeless Tobacco: Never Comments:no passive smoke Alcohol Use Standard Drinks/Week Comments Yes 0 (1 standard drink = 0.6 oz pur e alcohol) 12 drinks a year beer Utilities Answer Date Recorded Do you have trouble paying y our heating, water, or electric bill? (Adult - for ages 18 years and over) Not on file 01/28/2024 Is your family able to pay t he heat, water, or electric bill? (Household - for ages 0-17 years) Not on file 01/28/2024 Does your family have access to good internet? (Household - for ages 0-17 years) Not on file 01/28/2024 Social Connections Answer Date Recorded How often do you feel lonely or isolated from those around you? (Adult - for ages 18 years and over) Not on file 01/28/2024 Sex and Gender Information Value Date Recorded Sex Assigned at Not on file Legal Sex Male 5:26 AM EST Gender Identity Not on file Sexual Orientation Not on file documented as of this encounter Miscellaneous Notes * Telephone Encounter - Ji Rai MD - 06/30/2024 2:47 PM EST Patient aware of recommendations. * Telephone Encounter - Melanie Garcia RPh - 06/30/2024 11:07 AM EST Rheumatology Patient Event Notification - Pharmacist Review Patient: Stewart Luciano Jr. [id number] Event Notification reviewed. Chart reviewed. Type of Event: Scheduled surgery/procedure: back surgery on 07/13/24 Recommendations: Non-biologic: Methotrexate: Continue current dose prior to surgery and continue post-op unless complications occur and Biologic Upadacitinib (Rinvoq): HOLD for 3 days since the last dose before proceeding with surgery, and resume in 14 days post-op if no complications at surgeon follow up visit Communication: Nurse to notify patient Melanie Garcia RPh 06/30/2024 , 11:07 AM * Telephone Encounter - Brandy Judge OSA - 06/30/2024 11:01 AM EST [place] - Patient Related Communication Reason for Call: Pt having back surgery on and is asking if pt should stop taking the Methotrexate 2.5 MG and Rinvoq 15 MG. Pt was told from surgeon to ask if this should be stopped before surgery and when and when to startback on medication after surgery. KORINA Schmitt documented in this encounter Plan of Treatment Upcoming Encounters Date Type Department Care Team (Late st Contact Info) Description 12/04/2024 2:00 PM EDT Office Visit Rheumatology [address] [place] [id number] Bayron Hung CRNP [address] [place] [address] [place] [address] Health Maintenance Due Date Last Done Comments Pneumococcal Vaccine: 65+ Years (1 of 2 - PCV) 11/17/1951 Depression Screening 1959 DTap/Tdap Vaccines (1 - Tdap) 11/17/1966 Zoster Vaccines (1 of 2) 11/17/1966 COVID-19 Vaccine (4 - season) 2024 04/20/2021, 10/31/2020, 09/19/2020 Influenza Vaccine (FLU shot) (#1) 2024 07/09/2023, 06/07/2021, 06/14/2020, Additional history exists GFR 05/05/2025 05/05/2024, 07/0 12/2023, 01/03/2024, Additional history exists Albumin/Creatinine Ratio 05/05/2027 024, 01/11/2023, 06/07/2021, Additional history exists Colonoscopy Discontinued 05/03/2009 Colorectal Cancer Screening Discontinued Fecal Occult Blood Test Discontinued 06/16/20 10, 06/01/2008, 06/05/2007 Cologuard Discontinued HPV (Gardasil) Vaccine Aged Out No lo nger eligible based on patient's age to complete this topic Hepatitis B Vaccine Aged Out No longe r eligible based on patient's age to complete this topic MENINGOCOCCAL (MENACTRA/MENVEO) Aged Out No longer eligible based on patient's age to complete this topic Sigmoidoscopy Discontinued documented as of this encounter Medical Devices Not on filedocumented as of this encounter Care Teams Haul Driver Relationship Specialty Start Date End Date Daniela Thornton MD [address] [place] [address] [place] [id number] PCP - General 12/02/1998 documented as of this encounter
[2024-07-13] MEDS: LR 15ML/HR IV SCH (08:32)
[2024-07-13] MEDS: ACETAMINOPHEN 500 MG TAB PO SCH (08:32)
[2024-07-13] MEDS: GABAPENTIN 300 MG CAP PO SCH (08:32)
[2024-07-13] MEDS: CeleBREX 200 MG CAP PO SCH (08:33)
[2024-07-13] MEDS: LR 60ML/HR IV SCH (08:33)
[2024-07-13] MEDS ORDERED: DEXAMETHASONE SOD INJ 4 MG/ML VIAL ONE ×2 (08:46→10:24)
[2024-07-13] MEDS ORDERED: SUCCINYLCHOLINE CHLORIDE 20 MG/ML 10 ML VIAL IV ONE (08:46)
[2024-07-13] MEDS ORDERED: LIDOCAINE 2% 2 ML VIAL/AMP(20MG/ML) INFIL ONE (08:46)
[2024-07-13] MEDS ORDERED: GLYCOPYRROLATE 0.2 MG/ML VIAL ONE ×2 (08:46→10:24)
[2024-07-13] MEDS ORDERED: ePHEDrine sulfate 50 MG/ML AMP ONE (08:46)
[2024-07-13] MEDS ORDERED: PHENYLEPHRINE HCL 10 MG/ML VIAL ONE (08:46)
[2024-07-13] MEDS ORDERED: NEOSTIGMINE METHYLSULFATE 1 MG/ML 10ML VIAL ONE (08:46)
[2024-07-13] MEDS ORDERED: PROPOFOL IV EMULSION 10 MG/ML 20 ML VIAL IV ONE (08:46)
[2024-07-13] MEDS ORDERED: ONDANSETRON INJ 2 MG/ML 2 ML VIAL ONE ×2 (08:46→12:43)
[2024-07-13] MEDS ORDERED: MIDAZOLAM HCL 1 MG/ML 2ML VIAL ONE (08:47)
[2024-07-13] MEDS ORDERED: fentaNYL citrate PF 100 MCG/2 ML VIAL ONE ×2 (08:47)
[2024-07-13] MEDS ORDERED: ROCURONIUM BROMIDE 10 MG/ML 5 ML VIAL IV ONE ×2 (08:49→10:48)
--- NOTE | 2024-07-13 09:31 | History & Physical Bridge Note ---
Date of Service July 13, 2024 History & Physical Bridge Note I have examined the patient, reviewed the History & Physical and in the interval since the performance of the History & Physical I have noted the following changes of clinical significance: no changes noted
--- NOTE | 2024-07-13 09:32 | History & Physical Report ---
Date of Service July 13, 2024 Assessment & Plan (1) Neurogenic claudication due to lumbar spinal stenosis: Plan: L3-L4 decompression and fusion, L4-L5 hardware removal History of Present Illness Chief Complaint: Back and bilateral leg pain Primary Care Provider: Jasper Thornton This is a 78-year-old male known to me presents for chronic persistent back and leg pain after failing course of nonoperative care he is here for surgical invention. Allergies Allergy/AdvReac Type Severity Reaction Status Date / Time No Known Allergies Allergy Unknown Verified 07/13/24 08:19 Home Medications Medication Instructions Recorded Confirmed Type oxycodone-acetaminophen 5 mg-325 1 tab PO TID PRN Pain 09/23/19 07/13/24 History mg tablet atorvastatin 10 mg tablet 10 mg PO 3XWK 09/22/21 07/13/24 History finasteride 5 mg tablet 5 mg PO QPM 10/11/21 07/13/24 History metformin 500 mg tablet 1,000 mg PO QPM 10/11/21 07/13/24 History calcium 600 mg capsule 600 mg PO QAM 06/17/24 07/13/24 History cholecalciferol (vitamin D3) 50 50 mcg PO BID 06/17/24 07/13/24 History mcg (2,000 unit) tablet (Vitamin D3) cyclobenzaprine 10 mg tablet 10 mg PO BID 06/17/24 07/13/24 History folic acid 1 mg tablet 1 mg PO UD 06/17/24 07/13/24 History furosemide 40 mg tablet (Lasix) 40 mg PO QAM 06/17/24 07/13/24 History ibuprofen-diphenhydramine citrate 1 cap PO HS PRN Sleep 06/17/24 07/13/24 History 200 mg-38 mg tablet (Advil PM) losartan 100 mg tablet 100 mg PO QAM 06/17/24 07/13/24 History methotrexate sodium 2.5 mg tablet 2.5 mg PO UD 06/17/24 07/13/24 History multivitamin 1 tab PO QAM 06/17/24 07/13/24 History olopatadine 0.2 % eye drops 1 drp ophthalmic (eye) DAILY PRN 06/17/24 07/13/24 History as needed pseudoephedrine HCl 30 mg tablet 30 mg PO Q6H PRN Congestion 06/17/24 07/13/24 History (Sudafed) sodium chloride 0.65 % nasal mist 1 spray intranasal BID PRN 06/17/24 07/13/24 History Congestion upadacitinib 15 mg tablet,extended 15 mg PO QAM 06/17/24 07/13/24 History release 24 hr (Rinvoq) vitamin A-vitamin C-vit E-min 1 tab PO HS 06/17/24 07/13/24 History tablet Past Med/Surg History Problem List (Updated 07/13/24 @ 09:32 by Getachew Woods DO) Neurogenic claudication due to lumbar spinal stenosis Encounter for pre-operative examination Diabetic peripheral neuropathy associated with type 2 diabetes mellitus Chronic venous insufficiency of lower extremity Medical History (Updated 07/13/24 @ 09:32 by Getachew Woods DO) Candidiasis of skin To axillary area- has cream- uses PRN- no significant issues at this time per patient Right knee pain Gets gel injections Lymphedema to bilateral LEs- followed by PCP COVID-19 virus infection 2020- hospitalized 2021- symptoms completely resolved Back injury 1990 & 2003>spinal fx Rheumatoid arthritis Follows with rheum Diabetes mellitus, type 2 Hypertension Sleep apnea cpap device has been recalled (has not had for 2 years) HLD (hyperlipidemia) Chronic pain syndrome Polymyalgia rheumatica Follows with rheum Morbid obesity BPH (benign prostatic hyperplasia) Diabetic neuropathy associated with diabetes mellitus due to underlying condition Bilateral feet Surgical History History of lumbar spinal fusion 1993 and 2003 (titanium in lumbar area) Hx of vasectomy History of colonoscopy History of appendectomy History of tooth extraction History of tonsillectomy Family History Other No family history of adverse response to anesthesia Social History Smoking Status: Never smoker Tobacco Type: Smokeless Tobacco (Dip or Chew) Second Hand Exposure: Yes (in the past); Do You Dip or Chew Tobacco: No (quit 1993); Hx Alcohol Use: Yes Alcohol type: beer Hx Substance Use: No Preferred Language: Kazakh Communication Ability: Effective Cabinet Mounter Required: No Beliefs That Will Affect Care: None marital status: Current Living Situation: Spouse Feels Safe at Home: Yes Safety Concerns: Feels Safe At This Time Assistive Devices: Cane, Glasses and Hearing Aid - Bilateral Assistive Devices Comment: reading glasses Physical Exam Physical Exam: Patient is alert and oriented Heart regular rhythm Lungs clear Results & Data Results & Data Vital Signs (Past 12 Hours) Vital Signs Temp Pulse Resp BP Pulse Ox O2 Del Method 07/13/24 08:28 36.8 C 79 20 169/91 H 95 Room Air
[2024-07-13] MEDS ORDERED: ATROPINE SULFATE 0.1 MG/ML 10ML SYR IV PRN (09:44)
[2024-07-13] MEDS ORDERED: ePHEDrine sulfate 50 MG/ML AMP IV PRN (09:44)
[2024-07-13] MEDS ORDERED: ONDANSETRON INJ 2 MG/ML 2 ML VIAL IV PRN ×2 (09:44→14:33)
[2024-07-13] MEDS ORDERED: PROMETHAZINE HCL 6.25 MG in SODIUM CHLORIDE 0.9% 50 ML IV PRN (09:44)
[2024-07-13] MEDS: ceFAZolin 3000MG 3,000 MG/72.5 ML BAG IV SCH (10:00)
[2024-07-13] MEDS: BUPIVACAINE/EPINEPHRINE 0.25% 1:200,000 30 ML VIAL ONE (11:00)
[2024-07-13] MEDS: FLOSEAL HEMOSTATIC MATRIX 10ML TOP ONE (12:28)
[2024-07-13] MEDS: ceFAZolin 330 MG/ML 1 GM VIAL ONE (12:42)
--- NOTE | 2024-07-13 13:05 | Operative Report ---
Post Operative Report Pre & Post Diagnosis Operation Date: 07/13/24 09:35 Pre-Op Diagnosis: Lumbar Region Spinal Stenosis with Neurogenic Claudication Morbid obesity Post-Op Diagnosis: Same I identified the patient and participated in the time-out.: Yes Procedure Operation Date: 07/13/24 09:35 Actual Procedures #1 removal of posterior instrumentation L4-S1. #2 exploration of fusion L4-S1. #3 lumbar decompression with bilateral medial facetectomies and foraminotomies L3-L4. #4 posterior spinal fusion L3-L4. #5 placement posterior instrumentati on L3-S1. #6 interbody fusion L3-L4. #7 placement of Spira 13 x 26 mm at L3- L4. #8 placement locally harvested morselized autograft posterior gutters. #9 placement infuse collagen sponge combined with Koros in the posterior lateral gutters and os design interbody space. #10 application of versa wrap over the exposed dura. Surgeon Getachew Woods, DO Environmental Project Manager None Estimated Blood Loss 850 Findings See Below Patient is 5 foot 11 weighing over 142 kg with a BMI in excess of 43. The patient's body habitus combined with an EBL of greater than 800 cc created significant technical difficulty with positioning exposure and the procedure itself. This added almost 10% increased operative time. I am recommending a modifier 22 for this case. Specimens None Indications This is a 78-year-old male presents problems diagnosis of failing course of nonoperative care is here for surgical invention. Description of Procedure Patient was met with identified informed consent obtained. Patient was then taken to the operative suite underwent intubation placed in a prone position on the Rodger table on top of the Patrice frame. All bony promises well-padded eyes inspected to ensure no external pressure placed upon them. This point lumbar spine was prepped and draped in a normal sterile fashion. Sharp dissection with the assistance of Bovie cautery form down to and exposing the lamina transverse processes of L3 and instrumentation at L4-L5 and S1 levels bilaterally. Then proceeded move the hardware bilaterally explored the fusion mass noting to be mature intact. Informed complete laminectomy of L3 including bilateral medial facetectomies and foraminotomies addressing severe spinal stenosis. Pedicle screws were then placed at L3-L4 on the left L5 on the right and S1 levels bilaterally. Appropriate size vane was then positioned provisionally placed bilaterally. By way of a transforaminal portion of right complete discectomy of L3-L4 was performed endplates grade 2 subcortical bleeding bone and a 13 x 26 mm Spira cage filled with os design bone graft tapped in position. The rods were then locked in final position bilaterally. The transverse processes of L3-L4 burred to subcortical bleeding bone. Infuse collagen sponge combined with Koros and local autograft placed in the posterior gutters. Versa wrap placed over the exposed dura. 15 round ZACHARIAH drain inserted. The incision was then closed with 1 Vicryl the fascia 2-0 Vicryl subcutaneously and 4-0 Monocryl for final skin closure. Steri-Strips sterile dressing placed. Patient waken taken to PACU in stable condition. Please note spinal cord monitoring was utilized out the procedure no changes noted. Im ordering 20 grams of Triple [place] Collagen Powder (Targovax [id number]) to treat an incision wound that was caused by a spine procedure. The incision is approximately 2 cm(W) x 4 cm(L) into the joint (D) in size and is a full thickness wound. Triple [place] collagen comes in 1 gram packets so 20 packets were ordered. Given the size of the wound, with light to moderate exudate I chose to order a 20 day supply. The patient will be provided instructions for proper application of the collagen wound kit. The patient will be asked to apply the collagen powder daily and then cover it with sterile dressings dispensed. Collagen was selected as I expect the collagen to attract monocytes and fibroblasts, act as a sacrificial substrate for MMPs, and ultimately proved a matrix for tissue and vessel growth. The collagen will act as a primary dressing in this scenario. It is medically necessary for proper healing of these wounds to improve bioavailability and contact with each wound surface, this is also to help prevent infection of wounds and promote healing ultimately leading to a better healing outcome and limit the risk of infection. I attest to the content of the Intraoperative Record and any orders documented therein. Any exceptions are noted below.
--- NOTE | 2024-07-13 13:24 | Fluoroscopy Report ---
FL lumbar spine 2-3V CLINICAL HISTORY: L3-L4 DECOMP/FUSION, L4-L5 REMOVAL COMPARISON STUDY: MRI 03/11/2024 FLUOROSCOPY TIME: 25.8 seconds FLUOROSCOPY IMAGES: 2 EXPOSURE DOSE: 25.75 mGy FINDINGS: Posterior interbody vane and screw fusion hardware is noted at 4 levels which appears to be at L3-S1 with discectomy changes. There is magnification of the images which limits exact numbering. Note that the images were submitted following completion of the surgery. No unexpected opaque foreign bodies. IMPRESSION: Fluoroscopic assistance as above. ACT 112: Negative or not required by law. Electronically signed by: Neeraj Flores M.D. 07/13/2024 1:23 PM
[2024-07-13] MEDS: fentaNYL citrate PF 100 MCG/2 ML VIAL IV PRN (13:30)
[2024-07-13] MEDS: HYDROmorphone INJ 2 MG/ML SYR/VIAL IV PRN (13:40)
[2024-07-13] MEDS ORDERED: HYDROmorphone INJ 0.5 MG/0.5 ML SYR IV PRN (14:33)
[2024-07-13] MEDS ORDERED: METOCLOPRAMIDE HCL INJ 5 MG/ML 2 ML VIAL IV PRN (14:33)
[2024-07-13] MEDS ORDERED: ACETAMINOPHEN 1,000 MG/100 ML VIAL IV PRN (14:33)
[2024-07-13] MEDS ORDERED: PHARMACY GLYCEMIC MGMT CONSULT PRN (14:33)
[2024-07-13] MEDS ORDERED: bisacodyL 10 MG SUPP PR PRN (14:33)
[2024-07-13] MEDS ORDERED: MAGNESIUM HYDROXIDE SUSP 30 ML UDC PO PRN (14:33)
[2024-07-13] MEDS ORDERED: SOD PHOSPHATE/SOD BIPHOSPHATE ENEMA 132 ML BTL PR PRN (14:33)
[2024-07-13] MEDS ORDERED: ALUMINUM/MAGNESIUM SUSP 30 ML UDC PO PRN (14:33)
[2024-07-13] MEDS ORDERED: FAMOTIDINE 20 MG TAB PO PRN (14:33)
[2024-07-13] MEDS ORDERED: DO NOT ADMINISTER PNEUMOCOCCAL VACCINE PRN (14:33)
[2024-07-13] MEDS ORDERED: NALOXONE HCL 0.4 MG/1 ML VIAL/CARP IV PRN (14:33)
[2024-07-13] MEDS ORDERED: PSEUDOEPHEDRINE HCL 30 MG TAB PO PRN (14:33)
[2024-07-13] MEDS ORDERED: diphenhydrAMINE Capsule 25 MG CAP PO PRN (14:33)
[2024-07-13] MEDS ORDERED: PROMETHAZINE 12.5 MG/50.5 ML BAG IV PRN (14:33)
[2024-07-13] MEDS ORDERED: traMADol HCL 50 MG TABLET PO PRN (14:33)
[2024-07-13] MEDS ORDERED: LORazepam 0.5 MG TAB PO PRN (14:33)
[2024-07-13] MEDS ORDERED: ONDANSETRON 4 MG OD TAB PO PRN (14:33)
[2024-07-13] MEDS ORDERED: DO NOT ADMINISTER FLU VACCINE PRN (14:33)
[2024-07-13] MEDS ORDERED: LORazepam 2 MG/1 ML VIAL IV PRN (14:33)
[2024-07-13] MEDS ORDERED: ACETAMINOPHEN 500 MG TAB PO PRN (14:33)
[2024-07-13] MEDS ORDERED: hydrOXYzine HCl 25 MG TAB PO PRN (14:33)
--- NOTE | 2024-07-13 14:41 | Anesthesiology Progress Note ---
Date of Service July 13, 2024 Anesthesia Post Procedure Vital Signs Vital Signs: Temp Pulse Pulse Resp BP Pulse Ox O2 Del Method 07/13/24 14:35 36.5 C 77 18 132/65 94 Nasal Cannula 07/13/24 14:15 72 12 144/71 H 97 Nasal Cannula 07/13/24 14:00 36.4 C L 68 12 138/65 93 Nasal Cannula 07/13/24 13:50 68 14 138/64 98 Nasal Cannula 07/13/24 13:40 66 12 141/60 H 94 Oxymask 07/13/24 13:30 73 12 147/70 H 94 Oxymask 07/13/24 13:20 72 12 138/64 96 Oxymask 07/13/24 13:13 36.3 C L 83 12 148/71 H 98 Oxymask 07/13/24 08:28 36.8 C 79 20 169/91 H 95 Room Air O2 Flow Rate 07/13/24 14:35 3 07/13/24 14:15 3 07/13/24 14:00 3 07/13/24 13:50 3 07/13/24 13:40 4 07/13/24 13:30 5 07/13/24 13:20 6 07/13/24 13:13 6 07/13/24 08:28 Pain Intensity Back: Pain Intensity: 7 Transfer of Care Handoff Completed per policy Notes Mental Status: alert / awake / arousable and participated in evaluation Patient Amnestic to Procedure: Yes Nausea / Vomiting: adequately controlled Pain: adequately controlled Airway Patency, RR, SpO2: stable & adequate BP & HR: stable & adequate Hydration State: stable & adequate Anesthetic Complications: no major complications apparent and Pt Satisfied with anesthetic care
[2024-07-13] MEDS ORDERED: SODIUM CHLORIDE 0.65% NA SOLN 45 ML (OCEAN) PRN (14:52)
[2024-07-13] MEDS: HYDROmorphone INJ 1 MG/ML SYRINGE IV PRN (15:07)
--- NOTE | 2024-07-13 15:07 | Consultation ---
<Statement entered by Harry Salazar DO - 07/13/24 18:26> I have seen and examined the patient and have discussed the case with the provider above. I have reviewed the advanced practitioner's documentation, and I agree with, and take responsibility for that plan of care. Patient seen and evaluated upon the medical floor postoperatively. Patient states pain is controlled and already getting better movement of his leg. Patient resting comfortably in bed, lungs: Clear to auscultation CV: S1-S2 ZACHARIAH drain in lumbar spine Discussed plan of care as outlined below with RUDY Date of Consultation July 13, 2024 Assessment & Plan (1) Neurogenic claudication due to lumbar spinal stenosis: (2) Diabetic peripheral neuropathy associated with type 2 diabetes mellitus: (3) Chronic venous insufficiency of lower extremity: (4) Lymphedema: (5) Hypertension: (6) Morbid obesity: Plan This is a 78-year-old male who has significant past medical history of HTN, HLD, T2DM, diabetic neuropathy, b/l lymphedema, seronegative rheumatoid arthritis, PMR, hypersomnia with sleep apnea, morbid obesity who presents for elective lumbar procedure by Dr. Woods. Status post L3-S1 decompression fusion with L4-S1 hardware removal lumbar spinal stenosis with neurogenic claudication EBL 850 mL, ZACHARIAH drain 185 mL pain/wound management per orthopedics pre op hgb 14, monitor post operatively activity/therapy per ortho T2DM a1c 6.9, hold metformin ISS per protocol, glycemic pharmacy on board HTN: bp controlled, on lasix, losartan - will hold lasix until volume status re assessed in a.m. HLD: chronic, stable continue statin RA: on Methotrexate/rinvoq, follows [facility] rheum DVT ppx: per primary FULL CODE PCP: Dr. Thornton Dispo: per primary I spent a total of 45 minutes reviewing notes, outpatient records, labs, medication, coordinating, documenting and providing care for this patient excluding time spent in the performance of separately billed services. Thank you for this consultation. We will follow the patient with you during their hospital stay. You can reach a member of the [facility] Hospitalist Team 04/03 via hospitalist role on tiger text. Pt was seen and examined in collaboration with Dr. Salazar, please see addendum History of Present Illness Requesting Physician: Dr. Woods Reason for Consultation: Post op medical management Attending Physician: Getachew Woods DO History of Present Illness This is a 78-year-old male who has significant past medical history of HTN, HLD, T2DM, diabetic neuropathy, b/l lymphedema, seronegative rheumatoid arthritis, PMR, hypersomnia with sleep apnea, long-term current use of systemic steroids, morbid obesity who presents for elective lumbar procedure by Dr. Woods. Hx obtained from pt and external chart review. and son are at [facility]. He currently reports incisional back pain, 6 out of 10. Prior to the surgery he had significant low back pain, lower extremity weakness left greater than right and bilateral numbness. Postoperatively he already has increased range of motion to his left lower extremity and his numbness has improved. Currently he denies any lightheadedness, dizziness, chest pain, shortness of breath, nausea, vomiting, abdominal pain. He is tolerating liquids but has not anything yet to eat. Preoperatively he denied any issues moving bowels or passing urine. Of significance patient does carry a history of KORINA. He states he has been without a CPAP for 2 years due to the recall. He also has chronic lymphedema for which he takes Lasix for. He also has chronic left ankle pain secondary to chronic tendon tears for which he wears an ankle brace while ambulating. Allergies Allergy/AdvReac Type Severity Reaction Status Date / Time No Known Allergies Allergy Unknown Verified 07/13/24 08:19 Home Medications Medication Instructions Recorded Confirmed Type oxycodone-acetaminophen 5 mg-325 1 tab PO TID PRN Pain 09/23/19 07/13/24 History mg tablet atorvastatin 10 mg tablet 10 mg PO 3XWK 09/22/21 07/13/24 History finasteride 5 mg tablet 5 mg PO QPM 10/11/21 07/13/24 History metformin 500 mg tablet 1,000 mg PO QPM 10/11/21 07/13/24 History calcium 600 mg capsule 600 mg PO QAM 06/17/24 07/13/24 History cholecalciferol (vitamin D3) 50 50 mcg PO BID 06/17/24 07/13/24 History mcg (2,000 unit) tablet (Vitamin D3) cyclobenzaprine 10 mg tablet 10 mg PO BID 06/17/24 07/13/24 History folic acid 1 mg tablet 1 mg PO UD 06/17/24 07/13/24 History furosemide 40 mg tablet (Lasix) 40 mg PO QAM 06/17/24 07/13/24 History ibuprofen-diphenhydramine citrate 1 cap PO HS PRN Sleep 06/17/24 07/13/24 History 200 mg-38 mg tablet (Advil PM) losartan 100 mg tablet 100 mg PO QAM 06/17/24 07/13/24 History methotrexate sodium 2.5 mg tablet 2.5 mg PO UD 06/17/24 07/13/24 History multivitamin 1 tab PO QAM 06/17/24 07/13/24 History olopatadine 0.2 % eye drops 1 drp ophthalmic (eye) DAILY PRN 06/17/24 07/13/24 History as needed pseudoephedrine HCl 30 mg tablet 30 mg PO Q6H PRN Congestion 06/17/24 07/13/24 History (Sudafed) sodium chloride 0.65 % nasal mist 1 spray intranasal BID PRN 06/17/24 07/13/24 History Congestion upadacitinib 15 mg tablet,extended 15 mg PO QAM 06/17/24 07/13/24 History release 24 hr (Rinvoq) vitamin A-vitamin C-vit E-min 1 tab PO HS 06/17/24 07/13/24 History tablet Patient History Medical History Candidiasis of skin To axillary area- has cream- uses PRN- no significant issues at this time per patient Right knee pain Gets gel injections Lymphedema to bilateral LEs- followed by PCP COVID-19 virus infection 2020- hospitalized 2021- symptoms completely resolved Back injury 1990 & 2003>spinal fx Rheumatoid arthritis Follows with rheum Diabetes mellitus, type 2 Hypertension Sleep apnea cpap device has been recalled (has not had for 2 years) HLD (hyperlipidemia) Chronic pain syndrome Polymyalgia rheumatica Follows with rheum Morbid obesity BPH (benign prostatic hyperplasia) Diabetic neuropathy associated with diabetes mellitus due to underlying condition Bilateral feet Surgical History History of lumbar spinal fusion 1993 and 2003 (titanium in lumbar area) Hx of vasectomy History of colonoscopy History of appendectomy History of tooth extraction History of tonsillectomy Family History Other No family history of adverse response to anesthesia Social History Smoking Status: Never smoker Tobacco Type: Smokeless Tobacco (Dip or Chew) Second Hand Exposure: Yes (in the past); Do You Dip or Chew Tobacco: No (quit 1993); Hx Alcohol Use: Yes Alcohol type: beer Hx Substance Use: No Preferred Language: Namibian Communication Ability: Effective Mens Locker Room Attendant Required: No Beliefs That Will Affect Care: None marital status: Current Living Situation: Spouse Feels Safe at Home: Yes Safety Concerns: Feels Safe At This Time Assistive Devices: Cane, Glasses and Hearing Aid - Bilateral Assistive Devices Comment: reading glasses Review of Systems Review of Systems: All systems reviewed & are unremarkable except as noted in HPI & below Physical Exam Physical Exam: Constitutional: WD/WN, vitals as above, NAD, sitting up in bed, pleasant, conversing easily Head: Normocephalic, Atraumatic Eyes: PERRL, conjunctivae normal, anicteric sclerae ENMT: external ear and nose normal, oropharynx normal Neck: trachea midline, no thyromegaly normal visual inspection Respiratory: normal respiratory effort, lungs clear to auscultation, no wheeze, rales, rhonchi. Normal insp/exp effort, no accessory muscle use Cardiovascular: RRR, no murmur, no edema Vessels: no JVD or carotid bruit Chest: normal inspection of chest Abdomen: normal bowel sounds, soft, nontender, no hepatosplenomegaly Musculoskeletal: no cyanosis or clubbing, extremities motor strength 5/5 Skin: no rashes, warm and dry normal turgor Neurologic: PERRL, EOMI, accommodation nl, no face palsy, no dysarthria CN's II-XI intact bilaterally and moves all extremities Psychiatric: A+Ox3, euthymic affect Lymphatic: no cervical or axillary lymphadenopathy : deferred Results & Data Vital Signs (Past 12 Hours) Vital Signs Temp Pulse Pulse Resp BP Pulse Ox O2 Del Method 07/13/24 14:35 36.5 C 77 18 132/65 94 Nasal Cannula 07/13/24 14:15 72 12 144/71 H 97 Nasal Cannula 07/13/24 14:00 36.4 C L 68 12 138/65 93 Nasal Cannula 07/13/24 13:50 68 14 138/64 98 Nasal Cannula 07/13/24 13:40 66 12 141/60 H 94 Oxymask 07/13/24 13:30 73 12 147/70 H 94 Oxymask 07/13/24 13:20 72 12 138/64 96 Oxymask 07/13/24 13:13 36.3 C L 83 12 148/71 H 98 Oxymask 07/13/24 08:28 36.8 C 79 20 169/91 H 95 Room Air O2 Flow Rate 07/13/24 14:35 3 07/13/24 14:15 3 07/13/24 14:00 3 07/13/24 13:50 3 07/13/24 13:40 4 07/13/24 13:30 5 07/13/24 13:20 6 07/13/24 13:13 6 07/13/24 08:28 Laboratory Results preoperative labs from 06/25/2024 were independently reviewed and interpreted. CBC and CMP was generally unremarkable. A1c was 6.9. Diagnostic Findings Lumbar Spine X-Ray 07/13/24 00:00 FL lumbar spine 2-3V CLINICAL HISTORY: L3-L4 DECOMP/FUSION, L4-L5 REMOVAL COMPARISON STUDY: MRI 03/11/2024 FLUOROSCOPY TIME: 25.8 seconds FLUOROSCOPY IMAGES: 2 EXPOSURE DOSE: 25.75 mGy FINDINGS: Posterior interbody vane and screw fusion hardware is noted at 4 levels which appears to be at L3-S1 with discectomy changes. There is magnification of the images which limits exact numbering. Note that the images were submitted following completion of the surgery. No unexpected opaque foreign bodies. IMPRESSION: Fluoroscopic assistance as above. ACT 112: Negative or not required by law. Electronically signed by: Neeraj Flores M.D. 07/13/2024 Pre op CXR reviewed and independently interpreted by myself and no acute cardiopulm changes Medications Administered Current Inpatient Medications Acetaminophen (Acetaminophen 500 Mg Tab) 1,000 mg PO PREOP [place] Stop: 07/13/24 18:00 Last Admin: 07/13/24 08:32 Dose: 1,000 mg Acetaminophen (Acetaminophen 500 Mg Tab) 1,000 mg PO Q8H PRN PRN Reason: MILD Pain Scale 1,2,3 & Pre PT Stop: 08/12/24 14:32 Al Hydrox/Mg Hydrox/Simethicone (Aluminum/Magnesium Susp 30 Ml Udc) 30 ml PO Q6H PRN PRN Reason: Dyspepsia Stop: 08/12/24 14:32 Atorvastatin Calcium (Atorvastatin 10 Mg Tab) 10 mg PO 3XWK [facility] Stop: 08/12/24 14:32 Atropine Sulfate (Atropine Sulfate 0.1 Mg/Ml 10ml Syr) 0.5 mg IV Q1M PRN PRN Reason: PACU Use-HR<40 &/or Bradycardi Stop: 07/13/24 17:44 Bisacodyl (Bisacodyl 10 Mg Supp) 10 mg [place] DAILY PRN PRN Reason: Constipation Stop: 08/12/24 14:32 Calcium Carbonate (Calcium Carbonate 1250mg Tab) 1 tab PO QAM [facility] Stop: 08/13/24 08:59 Celecoxib (Celebrex 200 Mg Cap) 200 mg PO PREOP [facility] Stop: 07/13/24 18:00 Last Admin: 07/13/24 08:33 Dose: 200 mg Cyclobenzaprine HCl (Cyclobenzaprine Hcl 10 Mg Tab) 10 mg PO BID [facility] Stop: 08/12/24 20:59 Diphenhydramine HCl (Diphenhydramine Capsule 25 Mg Cap) 25 mg PO Q6H PRN PRN Reason: Allergic Rhinitis/Insomnia Stop: 08/12/24 14:32 Ephedrine Sulfate (Ephedrine Sulfate 50 Mg/Ml Amp) 5 mg IV Q5M PRN PRN Reason: PACU Use Only-SBP<90 mmHg Stop: 07/13/24 17:44 Famotidine (Famotidine 20 Mg Tab) 20 mg PO Q12H PRN PRN Reason: Dyspepsia Stop: 08/12/24 14:32 Fentanyl Citrate (Fentanyl Citrate Pf 100 Mcg/2 Ml Vial) 25 mcg IV Q5M PRN PRN Reason: PACU Use Only-Pain Stop: 07/13/24 17:44 Last Admin: 07/13/24 13:35 Dose: 25 mcg Finasteride (Finasteride 5 Mg Tab) 5 mg PO QPM [facility] Stop: 08/12/24 20:59 Folic Acid (Folic Acid 1 Mg Tab) 1 mg PO [id number] [facility] Stop: 08/13/24 08:59 Furosemide (Furosemide 40 Mg Tab) 40 mg PO QAM [facility] Stop: 08/13/24 08:59 Gabapentin (Gabapentin 300 Mg Cap) 300 mg PO PREOP [place] Stop: 07/13/24 18:00 Last Admin: 07/13/24 08:32 Dose: 300 mg Hydromorphone HCl (Hydromorphone Inj 2 Mg/Ml Syr/Vial) 0.5 mg IV Q5M PRN PRN Reason: PACU Use Only-Pain Stop: 07/13/24 17:44 Last Admin: 07/13/24 13:45 Dose: 0.5 mg Hydromorphone HCl (Hydromorphone Inj 0.5 Mg/0.5 Ml Syr) 0.5 mg IV Q3H PRN PRN Reason: MODERATE Pain (Scale 4,5,6) & Stop: 07/27/24 14:32 Hydromorphone HCl (Hydromorphone Inj 1 Mg/Ml Syringe) 1 mg IV Q3H PRN PRN Reason: SEVERE Pain (Scale 7,8,9,10) Stop: 07/27/24 14:32 Hydroxyzine HCl (Hydroxyzine Hcl 25 Mg Tab) 25 mg PO Q8H PRN PRN Reason: Anxiety Stop: 08/12/24 14:32 Lactated Ringer's (Lr) 1,000 mls @ 15 mls/hr IV .Q24H [place] Stop: 07/14/24 05:59 Last Infusion: 07/13/24 09:55 Dose: Infused Lactated Ringer's (Lr) 1,000 mls @ 60 mls/hr IV .[id number] [place] Stop: 07/13/24 22:39 Last Admin: 07/13/24 08:33 Dose: Not Given Cefazolin Sodium (Ancef 3000mg) 3,000 mg in 72.5 mls @ 130 mls/hr IV PREOP [place]; Protocol Stop: 07/13/24 18:00 Last Admin: 07/13/24 10:00 Dose: 130 mls/hr Promethazine HCl 6.25 mg/ (Sodium Chloride) 50.25 mls @ 204 mls/hr IV ONCE PRN PRN Reason: PACU Use Only-Nausea/Vomiting Stop: 07/13/24 17:44 Acetaminophen (Ofirmev) 1,000 mg in 100 mls @ 400 mls/hr IV Q8H PRN PRN Reason: Pain Rating 1-3 & Pre PT Stop: 07/14/24 14:33 Cefazolin Sodium (Ancef 2000mg) 2,000 mg in 15 mls @ 3.75 mls/min IV Q8H [place]; Protocol Stop: 07/14/24 03:18 Promethazine HCl (Phenergan) 12.5 mg in 50.5 mls @ 202 mls/hr IV Q6H PRN PRN Reason: Nausea And Vomiting Stop: 08/12/24 14:32 Dexamethasone 6 mg/ Syringe 1.5 mls @ 1 mls/min IV DAILY [place] Stop: 07/16/24 09:02 Influenza Virus Vaccine Quadrival (Do Not Administer Flu Vaccine) 1 each N/A PRN PRN PRN Reason: Notification Stop: 08/12/24 14:32 Lorazepam (Lorazepam 0.5 Mg Tab) 0.5 mg PO Q8H PRN PRN Reason: Sedation/Anxiety Stop: 08/12/24 14:32 Lorazepam (Lorazepam 2 Mg/1 Ml Vial) 0.5 mg IV Q8H PRN PRN Reason: Sedation/Anxiety Stop: 08/12/24 14:32 Losartan Potassium (Losartan Potassium 50 Mg Tab) 100 mg PO QAM [facility] Stop: 08/13/24 08:59 Magnesium Hydroxide (Magnesium Hydroxide Susp 30 Ml Udc) 30 ml PO Q24H PRN PRN Reason: Constipation Stop: 08/12/24 14:32 Metoclopramide HCl (Metoclopramide Hcl Inj 5 Mg/Ml 2 Ml Vial) 10 mg IV Q6H PRN PRN Reason: Nausea &/or Vomiting Stop: 08/12/24 14:32 Miscellaneous (Upadacitinib (Rinvoq) Order Awaiting Action) 1 each N/A QS [facility] Stop: 08/12/24 15:59 Miscellaneous Information (Pharmacy Glycemic Mgmt Consult) 1 each N/A UD PRN PRN Reason: Consult Stop: 08/12/24 14:32 Multivitamins (Multivitamin Tab) 1 tab PO QAM [facility] Stop: 08/13/24 08:59 Naloxone HCl (Naloxone Hcl 0.4 Mg/1 Ml Vial/Carp) 0.1 mg IV Q5M PRN PRN Reason: Oversedation/Resp depression Stop: 08/12/24 14:32 Non-Formulary Medication (Olopatadine) 1 drops OP DAILY PRN PRN Reason: as needed Non-Formulary Medication (Vitamin A-Vitamin C-Vit E-Min) 1 tab PO HS [place] Stop: 08/12/24 20:59 Ondansetron HCl (Ondansetron Inj 2 Mg/Ml 2 Ml Vial) 4 mg IV ONCE PRN PRN Reason: PACU Use Only-Nausea/Vomiting Stop: 07/13/24 17:44 Ondansetron HCl (Ondansetron Inj 2 Mg/Ml 2 Ml Vial) 4 mg IV Q6H PRN PRN Reason: Nausea &/or Vomiting Stop: 08/12/24 14:32 Ondansetron HCl (Ondansetron 4 Mg Od Tab) 4 mg PO Q6H PRN PRN Reason: Nausea Stop: 08/12/24 14:32 Oxycodone HCl (Oxycodone Hcl Ir 5 Mg Tab (Immediate Release)) 5 - 10 mg PO Q4H PRN PRN Reason: Pain & Pre PT Stop: 07/27/24 14:32 Pneumococcal Polyvalent Vaccine (Do Not Administer Pneumococcal Vaccine) 1 each N/A PRN PRN PRN Reason: Notification Stop: 08/12/24 14:32 Polyethylene Glycol (Polyethylene (Miralax) 17 Gm Pack) 17 gm PO Q6 [place] Stop: 08/13/24 05:59 Pseudoephedrine HCl (Pseudoephedrine Hcl 30 Mg Tab) 30 mg PO Q6H PRN PRN Reason: Congestion Stop: 08/12/24 14:32 Senna/Docusate Sodium (Docusate Sodium/Senna 50/8.6mg Tab) 2 tab PO HS [place] Stop: 08/12/24 20:59 Sodium Biphosphate/Sodium Phosphate (Sod Phosphate/Sod Biphosphate Enema 132 Ml Btl) 132 ml [place] ONE PRN PRN Reason: Constipation Stop: 08/12/24 14:32 Sodium Chloride (Sodium Chloride 0.65% Na Soln 45 Ml ([place])) 1 sprays NA BID PRN PRN Reason: Congestion Stop: 08/12/24 14:51 Tramadol HCl (Tramadol Hcl 50 Mg Tablet) 50 - 100 mg PO Q4H PRN PRN Reason: Moderate-Severe pain & Pre PT Stop: 08/12/24 14:32 Vitamin D (Cholecalciferol 25 Mcg (1000 Units) Tab) 50 mcg PO BID [place] Stop: 08/12/24 20:59 ECG Additional Comments: Preoperative EKG was reviewed and independently interpreted which revealed a ventricular rate of 67 bpm, normal sinus rhythm, QTc 412 MS, no ST or T wave changes
--- NOTE | 2024-07-13 15:14 | Pharmacy Report ---
Pharmacy Glycemic Short Note 2 - Date of Service July 13, 2024 - Glycemic Short BSG Results (Last 24 hours): 07/13/24 07/13/24 08:16 13:16 POC Glucose 119 H 195 H OUTPATIENT ANTIDIABETIC REGIMEN: * metformin ER 1000mg q PM HbA1c 6.95 on 06/25/24 ASSESSMENT: * 78 year old male admitted for L3-L4 decompression and fusion and hardware removal with Dr. Woods (POD #0). Pharmacy was consulted for glycemic monitoring postop. * Preop BSG was 119mg/dL. He appears to have received dexamethasone 4mg iv x 2. His postop BSG was 195mg/dL. Lantus 15 units x 1 was ordered for this afternoon and a weight based (using adjusted body weight) bolus insulin regimen with a stress of 2 was ordered to start with dinner today. * Dexamethasone 6mg iv daily x 3 more days to start tomorrow morning and patient to receive postop prophylactic cefazolin. PLAN FOR INPATIENT GLYCEMIC CONTROL: * Hold outpatient oral diabetes medications * Basal insulin * Lantus 15 units SQ x 1 today and to reassess further need based on further BSG * Bolus insulin * NovoLog per scale ACHS or Q6hrs while NPO * Goal Range: Low 120 mg/dL - High 150 mg/dL * Correction Factor: 25 mg/dL/unit * Nutritional / Prandial insulin per carb ratio of 1 unit per 8 grams CHO consumed
[2024-07-13] MEDS ORDERED: GLUCOSE 10 TAB/TUBE PO PRN (15:30)
[2024-07-13] MEDS ORDERED: GLUCOSE 40% GEL 15 GM TUBE PO PRN (15:30)
[2024-07-13] MEDS ORDERED: CARBOHYDRATES FOR HYPOGLYCEMIA PO PRN (15:30)
[2024-07-13] MEDS ORDERED: GLUCAGON FOR INJ 1 MG VIAL SQ PRN (15:30)
[2024-07-13] MEDS ORDERED: DEXTROSE 50% 50 ML SYRINGE IV PRN (15:30)
[2024-07-13] MEDS: oxyCODONE HCL IR 5 MG TAB (IMMEDIATE RELEASE) PO PRN (15:47)
[2024-07-13] MEDS: LANTUS PER UNIT CHARGE SC ONE (15:48)
[2024-07-13] MEDS ORDERED: ARTIFICIAL TEARS OP PRN (15:53)
[2024-07-13] MEDS: INSULIN ASPART PER UNIT CHARGE SC SCH (17:22)
[2024-07-13] MEDS: ceFAZolin 2000MG 2,000 MG/15 ML SYR IV SCH (18:38)
[2024-07-13] MEDS: DOCUSATE SODIUM/SENNA 50/8.6MG TAB PO SCH (20:53)
[2024-07-13] MEDS: CHOLECALCIFEROL 25 MCG (1000 UNITS) TAB PO SCH (20:54)
[2024-07-13] MEDS: CEROVITE ADV FORMULA TAB PO SCH (20:54)
[2024-07-13] MEDS: ATORVASTATIN 10 MG TAB PO SCH (20:54)
[2024-07-13] MEDS: FINASTERIDE 5 MG TAB PO SCH (20:54)
[2024-07-13] MEDS: CYCLOBENZAPRINE HCL 10 MG TAB PO SCH (20:54)
[2024-07-14] MEDS: POLYETHYLENE (MIRALAX) 17 GM PACK PO SCH (05:31)
[2024-07-14 07:22] LABS: Basophils # (auto) 0.02 K/uL (0.00-0.20); Basophils % (auto) 0.2 %; Eosinophils # (auto) 0.01 K/uL (0.00-0.50); Eosinophils % (auto) 0.1 %; Hematocrit (blood only) 36.8 % (42.0-52.0); Hemoglobin 11.9 g/dl (14.0-18.0); Immature Granulocytes # (auto) 0.09 K/uL (0.01-0.20); Immature Granulocytes % (auto) 0.7 %; Lymphocytes # (auto) 0.64 K/uL (1.20-3.40); Mean Corpuscular Hemoglobin 29.8 pg (25.0-34.0); Mean Corpuscular Hgb Conc 32.3 g/dL (32.0-36.0); Mean Platelet Volume 8.9 fL (9.4-12.4); Monocytes # (auto) 1.37 K/uL (0.11-0.59); Monocytes % (auto) 10.8 %; Neutrophils % (auto) 83.2 %; Platelet Count 228 K/uL (130-400); RDW Coefficient of Variation 13.1 % (11.5-14.5); RDW Standard Deviation 44.2 fL (36.4-46.3); White Blood Count 12.73 K/ul (4.8-10.8)
[2024-07-14 07:40] LABS: BUN Creatinine Ratio 17.9 (10-20); Calcium 8.6 mg/dl (8.6-10.3); Creatinine Clr Calc Pharmacy 108.3 ml/min; Potassium 4.3 mmol/L (3.5-5.1)
[2024-07-14] MEDS: CALCIUM CARBONATE 1250MG TAB PO SCH (08:30)
[2024-07-14] MEDS: FOLIC ACID 1 MG TAB PO SCH (08:31)
[2024-07-14] MEDS: MULTIVITAMIN TAB PO SCH (08:31)
[2024-07-14] MEDS: dexAMETHasone 6 MG in SYRINGE 0 ML IV SCH (08:35)
--- NOTE | 2024-07-14 09:11 | XRay Report ---
XR chest 1V portable HISTORY: 78 years-old Male Hypoxia acute hypoxia COMPARISON: 06/25/2024 TECHNIQUE: AP view of the chest FINDINGS: Cardiac silhouette is enlarged. Small left pleural effusion with mild left basilar consolidation. Pul monary vascular congestion. No pneumothorax. The bones appear grossly intact. IMPRESSION: 1. Cardiomegaly with pulmonary vascular congestion. 2. Small left pleural effusion with mild left basilar consolidation favoring atelectasis. ACT 112: Negative or not required by law. The above report was generated using voice recognition software. It may contain grammatical, syntax o r spelling errors. Electronically signed by: Neeraj Flores M.D. 07/14/2024 9:10 AM
[2024-07-14] MEDS: LOSARTAN POTASSIUM 50 MG TAB PO SCH (09:48)
--- NOTE | 2024-07-14 10:29 | Orthopedic Progress Note ---
Date of Service July 14, 2024 Assessment & Plan (1) Neurogenic claudication due to lumbar spinal stenosis: Plan: At this time we will continue physical therapy monitor his ZACHARIAH output hopefully discharge home in the next few days. Admission and Anticipated Discharge Date Admission Date: July 13, 2024 Subjective Back pain controlled leg pain improved Physical Exam Physical Exam: Patient is sitting up at the bedside. Distracted testing. Is comfortable. Results & Data Vital Signs (Past 12 Hours) Vital Signs Temp Pulse Pulse Resp BP Pulse Ox O2 Del Method 07/14/24 07:35 36.4 C L 78 16 128/63 93 Nasal Cannula 07/14/24 02:57 36.5 C 73 16 114/67 95 Nasal Cannula 07/14/24 00:41 Nasal Cannula 07/13/24 22:47 36.7 C 74 18 102/57 L 99 Nasal Cannula O2 Flow Rate 07/14/24 07:35 5 07/14/24 02:57 5 07/14/24 00:41 5 07/13/24 22:47 5 Queries Orthopedic Spine Obesity: Yes
[2024-07-14] MEDS: LANTUS PER UNIT CHARGE SC ONE (12:35)
--- NOTE | 2024-07-14 15:52 | Hospitalist Progress Note ---
Date of Service July 14, 2024 Assessment & Plan (1) Neurogenic claudication due to lumbar spinal stenosis: (2) Diabetic peripheral neuropathy associated with type 2 diabetes mellitus: (3) Chronic venous insufficiency of lower extremity: (4) Lymphedema: (5) Hypertension: (6) Morbid obesity: Plan Patient is a 78-year-old male who has significant past medical history of HTN, HLD, T2DM, diabetic neuropathy, b/l lymphedema, seronegative rheumatoid arthritis, PMR, hypersomnia with sleep apnea, morbid obesity who presents for elective lumbar procedure by Dr. Woods. Lumbar spinal stenosis with neurogenic claudication S/P L3-S1 decompression fusion with L4-S1 hardware removal Postop anemia EBL 850 mL, ZACHARIAH drain 185 mL Continue pain/wound management per orthopedics No indication for transfusion currently PT OT as able Continue incentive spirometry Bowel regimen to prevent constipation Transient hypoxia H/O KORINA CXR suggestive of mild pulmonary vascular congestion Resume home diuretics Incentive spirometry Monitor DM II HbA1c 6.9, hold metformin ISS per protocol, glycemic pharmacy on board Monitor BGs HTN: Continue home medications Monitor blood pressure HLD: chronic, stable continue statin RA: on Methotrexate/rinvoq, follows [facility] Chronic leg edema Continue home diuretics as able Monitor volume status May benefit from getting an echo as outpatient Morbid obesity BMI 43 DVT Px: per primary Code Status FULL CODE Admission and Anticipated Discharge Date Admission Date: July 13, 2024 Subjective Patient is seen and examined at bedside States feeling a lot better today Postsurgery, patient was able to move his left upper extremity better Denies any significant surgical site pain Denies any chest pain, nausea, vomiting, abdominal pain Family at bedside No other complaints Saturating well on room air Review of Systems Review of Systems: All systems reviewed & are unremarkable except as noted in Subjective Physical Exam Physical Exam: Physical Exam: Vitals signs as noted above General Appearance:Obese, no apparent distress Head: normocephalic, Atraumatic Eyes: normal inspection, EOMI Neck: supple, Trachea midline Respiratory/Chest: Decreased breath sounds, CTA, No accessory muscle use Cardiovascular: S1, S2, no murmur Abdomen/GI:Soft, Non tender, Bowel sounds present Back+ surgical site in dressing,+ ZACHARIAH drain Extremities/Musculoskeletal:normal inspection, 2+ edema Neurologic/Psych:AAOX3, grossly no focal neurological deficits Skin: normal color, warm Results & Data Results & Data Vital Signs (Past 12 Hours) Vital Signs Temp Pulse Resp BP Pulse Ox O2 Del Method O2 Flow Rate 07/14/24 14:37 36.4 C L 78 16 124/70 94 Room Air 07/14/24 11:16 97 07/14/24 07:35 36.4 C L 78 16 128/63 93 Nasal Cannula 5 Laboratory Results Short CBC 07/14/24 Range/Units 06:53 WBC 12.73 H (4.8-10.8) K/ul Hgb 11.9 L (14.0-18.0) g/dl Hct 36.8 L (42.0-52.0) % Plt Count 228 (130-400) K/uL BMP 07/14/24 06:53 Sodium 138 Potassium 4.3 Chloride 102 Carbon Dioxide 30 BUN 15 Creatinine 0.84 Glucose 135 H Calcium 8.6
[2024-07-15 07:10] LABS: Hemoglobin 10.8 g/dl (14.0-18.0); Mean Corpuscular Hemoglobin 29.8 pg (25.0-34.0); Mean Corpuscular Hgb Conc 32.7 g/dL (32.0-36.0); Mean Corpuscular Volume 90.9 fL (80.0-100.0); Platelet Count 210 K/uL (130-400); RDW Coefficient of Variation 13.2 % (11.5-14.5); RDW Standard Deviation 43.7 fL (36.4-46.3); Red Blood Count 3.63 M/uL (4.70-6.10); White Blood Count 11.99 K/ul (4.8-10.8)
[2024-07-15 07:21] LABS: BUN Creatinine Ratio 24.7 (10-20); Calcium 8.5 mg/dl (8.6-10.3); Creatinine Clr Calc Pharmacy 124.6 ml/min; Potassium 4.1 mmol/L (3.5-5.1)
--- NOTE | 2024-07-15 08:21 | Hospitalist Progress Note ---
Date of Service July 15, 2024 Assessment & Plan (1) Neurogenic claudication due to lumbar spinal stenosis: (2) Diabetic peripheral neuropathy associated with type 2 diabetes mellitus: (3) Chronic venous insufficiency of lower extremity: (4) Lymphedema: (5) Hypertension: (6) Morbid obesity: Plan Patient is a 78-year-old male who has significant past medical history of HTN, HLD, T2DM, diabetic neuropathy, b/l lymphedema, seronegative rheumatoid arthritis, PMR, hypersomnia with sleep apnea, morbid obesity who presents for elective lumbar procedure by Dr. Woods. Lumbar spinal stenosis with neurogenic claudication S/P L3-S1 decompression fusion with L4-S1 hardware removal Postop anemia Continue pain/wound management per orthopedics PT OT as able Continue incentive spirometry Bowel regimen to prevent constipation Acute blood loss anemia, post-op, possibly also dilutional -current Hgb 10.8, pre-op Hgb 14 No indication for transfusion currently Transient hypoxia, resolved H/O KORINA CXR suggestive of mild pulmonary vascular congestion Resume home diuretics Incentive spirometry Monitor DM II HbA1c 6.9, hold metformin ISS per protocol, glycemic pharmacy on board Monitor BGs HTN: Continue home medications Monitor blood pressure HLD: chronic, stable continue statin RA: on Methotrexate/rinvoq, follows [facility] Chronic leg edema Continue home diuretics as able Monitor volume status May benefit from getting an echo as outpatient Morbid obesity BMI 43 DVT Px: per primary /surgeon Code Status FULL CODE Admission and Anticipated Discharge Date Admission Date: July 13, 2024 Subjective Patient is seen in follow up of med consult, pt s/p spinal surgery Overall pt states he feels well He has been ambulating Denies any significant surgical site pain Denies any fever, chills, chest pain, nausea, vomiting, abdominal pain Saturating well on room air Pt reports voiding w/o difficulty and having BMs Review of Systems Review of Systems: All systems reviewed & are unremarkable except as noted in Subjective Physical Exam Physical Exam: General Appearance:Obese M, no apparent distress Head: normocephalic, Atraumatic Eyes: normal inspection, EOMI Neck: supple Respiratory/Chest: Decreased breath sounds, CTA, No accessory muscle use Cardiovascular: S1, S2, no murmur Abdomen/GI:Soft, Non tender, Bowel sounds present Back+ surgical site in dressing,+ ZACHARIAH drain Extremities/Musculoskeletal:normal inspection, 1+ edema Neurologic/Psych:AAOX3, speech fluent, no facial asymmetry, answers appropriately, moves extremities Skin: warm, dry Results & Data Results & Data Vital Signs (Past 12 Hours) Vital Signs Temp Pulse Pulse Resp BP Pulse Ox O2 Del Method 07/15/24 07:51 36.4 C L 113 H 16 154/68 H 98 Room Air 07/15/24 07:25 36.5 C 92 H 16 109/66 99 Room Air 07/14/24 21:30 Room Air 07/14/24 20:36 36.6 C 93 H 18 158/82 H 96 Room Air Laboratory Results 07/15/24 07/15/24 07/14/24 Range/Units 07:57 06:20 20:34 WBC 11.99 H (4.8-10.8) K/ul RBC 3.63 L (4.70-6.10) M/uL Hgb 10.8 L (14.0-18.0) g/dl Hct 33.0 L (42.0-52.0) % MCV 90.9 (80.0-100.0) fL MCH 29.8 (25.0-34.0) pg MCHC 32.7 (32.0-36.0) g/dL RDW Std Deviation 43.7 (36.4-46.3) fL RDW Coeff of Ebony 13.2 (11.5-14.5) % Plt Count 210 (130-400) K/uL MPV 9.0 L (9.4-12.4) fL Sodium 136 (136-145) mmol/L Potassium 4.1 (3.5-5.1) mmol/L Chloride 102 (98-107) mmol/L Carbon Dioxide 28 (21-32) mmol/L Anion Gap 6 (3-11) BUN 18 (6-23) mg/dl Creatinine 0.73 (0.6-1.4) mg/dl Est Cr Clr Drug Dosing 124.6 ml/min eGFR 94.29 BUN/Creatinine Ratio 24.7 H (10-20) Glucose 140 H (70-99(Fasting)) mg/dl POC Glucose 133 H 157 H (70-99) mg/dl Calcium 8.5 L (8.6-10.3) mg/dl Magnesium 2.0 (1.7-2.4) mg/dl 07/14/24 07/14/24 Range/Units 16:19 11:17 WBC (4.8-10.8) K/ul RBC (4.70-6.10) M/uL Hgb (14.0-18.0) g/dl Hct (42.0-52.0) % MCV (80.0-100.0) fL MCH (25.0-34.0) pg MCHC (32.0-36.0) g/dL RDW Std Deviation (36.4-46.3) fL RDW Coeff of Ebony (11.5-14.5) % Plt Count (130-400) K/uL MPV (9.4-12.4) fL Sodium (136-145) mmol/L Potassium (3.5-5.1) mmol/L Chloride (98-107) mmol/L Carbon Dioxide (21-32) mmol/L Anion Gap (3-11) BUN (6-23) mg/dl Creatinine (0.6-1.4) mg/dl Est Cr Clr Drug Dosing ml/min eGFR BUN/Creatinine Ratio (10-20) Glucose (70-99(Fasting)) mg/dl POC Glucose 187 H 196 H (70-99) mg/dl Calcium (8.6-10.3) mg/dl Magnesium (1.7-2.4) mg/dl Medications Administered Current Inpatient Medications Acetaminophen (Acetaminophen 500 Mg Tab) 1,000 mg PO Q8H PRN PRN Reason: MILD Pain Scale 1,2,3 & Pre PT Stop: 08/12/24 14:32 Al Hydrox/Mg Hydrox/Simethicone (Aluminum/Magnesium Susp 30 Ml Udc) 30 ml PO Q6H PRN PRN Reason: Dyspepsia Stop: 08/12/24 14:32 Artificial Tears (Artificial Tears) 1 drops OP QID PRN PRN Reason: Dryness Stop: 08/12/24 15:52 Atorvastatin Calcium (Atorvastatin 10 Mg Tab) 10 mg PO [id number] [facility] Stop: 08/12/24 20:59 Last Admin: 07/13/24 20:54 Dose: 10 mg Bisacodyl (Bisacodyl 10 Mg Supp) 10 mg VT DAILY PRN PRN Reason: Constipation Stop: 08/12/24 14:32 Calcium Carbonate (Calcium Carbonate 1250mg Tab) 1 tab PO QAM [facility] Stop: 08/13/24 08:59 Last Admin: 07/14/24 08:30 Dose: 1 tab Cyclobenzaprine HCl (Cyclobenzaprine Hcl 10 Mg Tab) 10 mg PO BID [facility] Stop: 08/12/24 20:59 Last Admin: 07/14/24 21:27 Dose: 10 mg Dextrose (Dextrose 50% 50 Ml Syringe) 25 - 50 ml IV UD PRN; Protocol PRN Reason: Hypoglycemia Protocol Stop: 08/12/24 15:29 Diphenhydramine HCl (Diphenhydramine Capsule 25 Mg Cap) 25 mg PO Q6H PRN PRN Reason: Allergic Rhinitis/Insomnia Stop: 08/12/24 14:32 Famotidine (Famotidine 20 Mg Tab) 20 mg PO Q12H PRN PRN Reason: Dyspepsia Stop: 08/12/24 14:32 Finasteride (Finasteride 5 Mg Tab) 5 mg PO QPM [facility] Stop: 08/12/24 20:59 Last Admin: 07/14/24 21:27 Dose: 5 mg Folic Acid (Folic Acid 1 Mg Tab) 1 mg PO [id number] [facility] Stop: 08/13/24 08:59 Last Admin: 07/14/24 08:31 Dose: 1 mg Furosemide (Furosemide 40 Mg Tab) 40 mg PO QAM [facility] Stop: 08/13/24 08:59 Glucagon (Glucagon For Inj 1 Mg Vial) 1 mg SQ UD PRN; Protocol PRN Reason: Hypoglycemia Protocol Stop: 08/12/24 15:29 Glucose (Glucose 40% Gel 15 Gm Tube) 15 - 30 gm PO UD PRN; Protocol PRN Reason: Hypoglycemia Protocol Stop: 08/12/24 15:29 Glucose (Glucose 10 Tab/Tube) 4 - 8 tab PO UD PRN; Protocol PRN Reason: Hypoglycemia Protocol Stop: 08/12/24 15:29 Hydromorphone HCl (Hydromorphone Inj 0.5 Mg/0.5 Ml Syr) 0.5 mg IV Q3H PRN PRN Reason: MODERATE Pain (Scale 4,5,6) & Stop: 07/27/24 14:32 Hydromorphone HCl (Hydromorphone Inj 1 Mg/Ml Syringe) 1 mg IV Q3H PRN PRN Reason: SEVERE Pain (Scale 7,8,9,10) Stop: 07/27/24 14:32 Last Admin: 07/14/24 02:50 Dose: 1 mg Hydroxyzine HCl (Hydroxyzine Hcl 25 Mg Tab) 25 mg PO Q8H PRN PRN Reason: Anxiety Stop: 08/12/24 14:32 Promethazine HCl (Phenergan) 12.5 mg in 50.5 mls @ 202 mls/hr IV Q6H PRN PRN Reason: Nausea And Vomiting Stop: 08/12/24 14:32 Dexamethasone 6 mg/ Syringe 1.5 mls @ 1 mls/min IV DAILY [facility] Stop: 07/16/24 09:02 Last Admin: 07/14/24 08:35 Dose: 1 mls/min Influenza Virus Vaccine Quadrival (Do Not Administer Flu Vaccine) 1 each N/A PRN PRN PRN Reason: Notification Stop: 08/12/24 14:32 Insulin Aspart (Insulin Aspart Per Unit Charge) 0 units SC ACHS [facility] Stop: 08/12/24 16:29 Last Admin: 07/14/24 21:28 Dose: 157 units Lorazepam (Lorazepam 0.5 Mg Tab) 0.5 mg PO Q8H PRN PRN Reason: Sedation/Anxiety Stop: 08/12/24 14:32 Lorazepam (Lorazepam 2 Mg/1 Ml Vial) 0.5 mg IV Q8H PRN PRN Reason: Sedation/Anxiety Stop: 08/12/24 14:32 Losartan Potassium (Losartan Potassium 50 Mg Tab) 100 mg PO QAM [facility] Stop: 08/13/24 08:59 Last Admin: 07/14/24 09:48 Dose: Not Given Magnesium Hydroxide (Magnesium Hydroxide Susp 30 Ml Udc) 30 ml PO Q24H PRN PRN Reason: Constipation Stop: 08/12/24 14:32 Metoclopramide HCl (Metoclopramide Hcl Inj 5 Mg/Ml 2 Ml Vial) 10 mg IV Q6H PRN PRN Reason: Nausea &/or Vomiting Stop: 08/12/24 14:32 Miscellaneous (Upadacitinib (Rinvoq) Order Awaiting Action) 1 each N/A QS [facility] Stop: 08/12/24 15:59 Last Admin: 07/15/24 00:04 Dose: Not Given Miscellaneous (Carbohydrates For Hypoglycemia ) 15 - 30 gm PO UD PRN PRN Reason: Hypoglycemia Treatment Stop: 08/12/24 15:29 Miscellaneous Information (Pharmacy Glycemic Mgmt Consult) 1 each N/A UD PRN PRN Reason: Consult Stop: 08/12/24 14:32 Multivitamins (Multivitamin Tab) 1 tab PO QAM [facility] Stop: 08/13/24 08:59 Last Admin: 07/14/24 08:31 Dose: 1 tab Multivitamins/Minerals (Cerovite Adv Formula Tab) 1 tab PO HS [facility] Stop: 08/12/24 20:59 Last Admin: 07/14/24 21:27 Dose: 1 tab Naloxone HCl (Naloxone Hcl 0.4 Mg/1 Ml Vial/Carp) 0.1 mg IV Q5M PRN PRN Reason: Oversedation/Resp depression Stop: 08/12/24 14:32 Ondansetron HCl (Ondansetron Inj 2 Mg/Ml 2 Ml Vial) 4 mg IV Q6H PRN PRN Reason: Nausea &/or Vomiting Stop: 08/12/24 14:32 Ondansetron HCl (Ondansetron 4 Mg Od Tab) 4 mg PO Q6H PRN PRN Reason: Nausea Stop: 08/12/24 14:32 Oxycodone HCl (Oxycodone Hcl Ir 5 Mg Tab (Immediate Release)) 5 - 10 mg PO Q4H PRN PRN Reason: Pain & Pre PT Stop: 07/27/24 14:32 Last Admin: 07/15/24 07:31 Dose: 10 mg Pneumococcal Polyvalent Vaccine (Do Not Administer Pneumococcal Vaccine) 1 each N/A PRN PRN PRN Reason: Notification Stop: 08/12/24 14:32 Pseudoephedrine HCl (Pseudoephedrine Hcl 30 Mg Tab) 30 mg PO Q6H PRN PRN Reason: Congestion Stop: 08/12/24 14:32 Senna/Docusate Sodium (Docusate Sodium/Senna 50/8.6mg Tab) 2 tab PO HS [facility] Stop: 08/12/24 20:59 Last Admin: 07/14/24 21:20 Dose: Not Given Sodium Biphosphate/Sodium Phosphate (Sod Phosphate/Sod Biphosphate Enema 132 Ml Btl) 132 ml VT ONE PRN PRN Reason: Constipation Stop: 08/12/24 14:32 Sodium Chloride (Sodium Chloride 0.65% Na Soln 45 Ml ([place])) 1 sprays NA BID PRN PRN Reason: Congestion Stop: 08/12/24 14:51 Tramadol HCl (Tramadol Hcl 50 Mg Tablet) 50 - 100 mg PO Q4H PRN PRN Reason: Moderate-Severe pain & Pre PT Stop: 08/12/24 14:32 Vitamin D (Cholecalciferol 25 Mcg (1000 Units) Tab) 50 mcg PO BID [place] Stop: 08/12/24 20:59 Last Admin: 07/14/24 21:27 Dose: 50 mcg
--- NOTE | 2024-07-15 08:24 | Orthopedic Progress Note ---
Date of Service July 15, 2024 Assessment & Plan (1) Neurogenic claudication due to lumbar spinal stenosis: Plan: At this point we will continue physical therapy monitor his ZACHARIAH output and participate discharge home tomorrow. Admission and Anticipated Discharge Date Admission Date: July 13, 2024 Subjective Patient's back pain is controlled leg symptoms markedly improved. Physical Exam Physical Exam: Patient sitting at bedside appears comfortable. Good strength testing. Results & Data Vital Signs (Past 12 Hours) Vital Signs Temp Pulse Pulse Resp BP Pulse Ox O2 Del Method 07/15/24 07:51 36.4 C L 113 H 16 154/68 H 98 Room Air 07/15/24 07:25 36.5 C 92 H 16 109/66 99 Room Air 07/14/24 21:30 Room Air 07/14/24 20:36 36.6 C 93 H 18 158/82 H 96 Room Air Queries Orthopedic Spine Obesity: Yes
[2024-07-15] MEDS: FUROSEMIDE 40 MG TAB PO SCH (08:52)
--- NOTE | 2024-07-15 15:08 | Pharmacy Report ---
Pharmacy Glycemic Short Note 2 - Date of Service July 15, 2024 - Glycemic Short BSG Results (Last 24 hours): 07/14/24 07/14/24 07/15/24 16:19 20:34 06:20 Glucose 140 H POC Glucose 187 H 157 H 07/15/24 07/15/24 07:57 11:45 Glucose POC Glucose 133 H 109 H OUTPATIENT ANTIDIABETIC REGIMEN: * metformin ER 1000mg q PM HbA1c 6.95 on 06/25/24 ASSESSMENT: 07/15 * This is POD #2.. 42 total units of insulin were given yesterday (10 units were basal) * BSGs have been trending down despite the presence of steroids. Fasting BSG today was 133mg/dL and lunch BSG was 109mg/dL. No additional basal insulin will be given today and bolus insulin parameters will be continued as previously ordered. 07/13 * 78 year old male admitted for L3-L4 decompression and fusion and hardware removal with Dr. Woods (POD #0). Pharmacy was consulted for glycemic monitoring postop. * Preop BSG was 119mg/dL. He appears to have received dexamethasone 4mg iv x 2. His postop BSG was 195mg/dL. Lantus 15 units x 1 was ordered for this afternoon and a weight based (using adjusted body weight) bolus insulin regimen with a stress of 2 was ordered to start with dinner today. * Dexamethasone 6mg iv daily x 3 more days to start tomorrow morning and patient to receive postop prophylactic cefazolin. PLAN FOR INPATIENT GLYCEMIC CONTROL: * Hold outpatient oral diabetes medications * Basal insulin * Lantus 15 units SQ x 1 today and to reassess further need based on further BSG * Bolus insulin * NovoLog per scale ACHS or Q6hrs while NPO * Goal Range: Low 120 mg/dL - High 150 mg/dL * Correction Factor: 25 mg/dL/unit * Nutritional / Prandial insulin per carb ratio of 1 unit per 8 grams CHO consumed
[2024-07-16 07:03] VITALS: O2SAT 97
[2024-07-16 08:25] LABS: Hematocrit (blood only) 35.9 % (42.0-52.0); Hemoglobin 11.7 g/dl (14.0-18.0); Mean Corpuscular Hemoglobin 29.8 pg (25.0-34.0); Mean Corpuscular Hgb Conc 32.6 g/dL (32.0-36.0); Mean Corpuscular Volume 91.3 fL (80.0-100.0); Mean Platelet Volume 8.7 fL (9.4-12.4); Platelet Count 267 K/uL (130-400); RDW Coefficient of Variation 13.4 % (11.5-14.5); RDW Standard Deviation 44.6 fL (36.4-46.3); Red Blood Count 3.93 M/uL (4.70-6.10)
[2024-07-16 08:35] LABS: Calcium 9.1 mg/dl (8.6-10.3); Magnesium 2.1 mg/dl (1.7-2.4)
[2024-07-16 08:40] LABS: BUN Creatinine Ratio 23.4 (10-20); Creatinine Clr Calc Pharmacy 118.1 ml/min; Phosphorus 2.9 mg/dl (2.5-4.9)
--- NOTE | 2024-07-16 11:02 | Discharge Summary ---
Date of Service July 16, 2024 Admission HPI Per Admitting Provider This is a 78-year-old male known to me presents for chronic persistent back and leg pain after failing course of nonoperative care he is here for surgical invention. Principal Diagnosis Lumbar spondylosis with radiculopathy Discharge Data Allergies Allergy/AdvReac Type Severity Reaction Status Date / Time No Known Allergies Allergy Unknown Verified 07/13/24 08:19 Consultations 07/13/24 14:33 Consult Hospitalist Routine Procedures Performed Operation Date: 07/13/24 09:35 Actual Procedures p L3-S1 Decompression and Fusion, Spinal Cord Monitoring(Not Applicable) - Getachew Woods DO s L4-S1 Hardware Removal,(Not Applicable) - Getachew Woods DO Ordered Studies 07/13/24 [place] lumbar spine 2-3V Routine Hospital Course (1) Lumbosacral spondylosis with radiculopathy: Patient went lumbar decompression fusion trial as well as negative orthopedic for postoperative. Postoperatively progressed appropriately. Ambulating well. Pain well-controlled. ZACHARIAH drain decreased appropriately. Subsidy discharged home. Discharge orders instructions from the chart for further review. Total Time Total Time Spent Total Time Spent (In Minutes): 20 minutes Discharge Plan Discharge Items Patient Disposition: Home - Self-Care Reason For Visit: Lumbar Region Spinal Stenosis with Neurogenic Fabi Discharge Diagnosis: Lumbar spinal stenosis with neurogenic claudication Activity: As commented below Non-emergency contact: Primary Care Provider Call non-emergency contact if: you have any medication questions Follow-up/Referrals: Jasper Thornton [Primary Care Provider] - Diet: Regular Addtl Attending Provider Instructions: ACTIVITY RECOMMENDATIONS: SELF CARE INSTRUCTIONS AFTER THORACIC/LUMBAR FUSIONS 1. You may walk to your tolerance. It is good exercise for your legs and back. Expect some back and intermittent leg aches and pains. 2. You may perform "counter-top" level activities (make a sandwich, kylee with a project, etc.). 3. No bending or lifting of more than 10 pounds or back twisting of any nature (roll like a log when turning in bed). 4. You may ride in a car for 20-30 minutes at a time. No driving until after your first visit with your doctor. 5. Frequent changes of position and restricting sitting to 30 minutes at a time will help limit the amount of back spasms and stiffness you may experience. 6. You may discontinue the use of ambulatory aids (cane, crutches, etc.) once your strength and confidence allow. 7. You may stations superintendent the shower and let water strike your incision when you arrive home at least once daily. Do not take a tub bath, sit in a hot tub or go into a swimming pool until after your first recheck in the office. 8. You may resume previous diet. SPECIAL CARE INSTRUCTIONS: VERY IMPORTANT TO READ AND REVIEW A. Your surgical incision has been closed with a cosmetic suture under the skin that will dissolve in about 6 weeks. In 14 days, you can use a pair of clean scissors and cut the suture that is left outside of the skin at the ends of your incision. 1. The small skin tapes can be removed 7 days after surgery if they have not fallen off by that point. 2. You may keep the wound open to air as much as possible to promote healing after post-op day number 5 unless told otherwise by your doctor. 3. If you think the wound looks like it is becoming infected (redness or worsening drainage) and/or you are experiencing fever, chill or worsening back pain and muscle spasms, contact the office so that we may evaluate you as soon as possible. B. Complications are uncommon, but please contact us if you have any signs or symptoms of: 1. wound infection (fever higher than 102.5 degrees F, redness, separation of wound, drainage, or increasing pain from the incision) 2. blood clots in legs (pain, swelling, redness and warmth in legs) 3. urinary tract infection (fever higher than 102.5 degrees F, burning upon urination or increased frequency of urination) 4. nerve problems (inability to walk on your toes or heels, numbness, loss of bowel or bladder control) 5. any other symptoms that concern you C. Please call the office at if you have any concerns or questions about your operation or recovery. D. No smoking! Smoking drastically decreases the chance of a solid fusion. E. Do not take any anti-inflammatory medications (Indocin, Advil, Motrin, Aspirin, Naprosyn, etc.) as these may inhibit the chance of a solid fusion. Tylenol is okay to take for pain. MANAGING PAIN AFTER SPINAL SURGERY 1. Narcotic medication is intended for short-term use and will be provided for surgical pain. Surgical pain usually lasts for a period of 4-6 weeks. Narcotic medication includes Percocet, Vicodin, Darvocet, Tylenol #3 or Lortab. 2. Longer-term pain is more appropriately treated with non-narcotic medication such as Tylenol ES. 3. Muscle spasm is not appropriately treated with narcotics. Muscle relaxers such as Soma, Flexeril or Skelaxin can be used along with Tylenol ES. 4. Remember that we all live with some "aches and pains". This is not unusual or uncommon after an injury or as we get older. a. Back pain is expected and may include muscle spasms for 4 to 6 weeks after surgery. The pain should gradually improve. If the pain worsens for no apparent reason, please contact the office. b. Intermittent leg pain may also be experienced and should not be concerned about unless it worsens for no apparent reason. If so, please contact the office. 5. We will provide appropriate medication within the normal guidelines of their prescribed use. We will also be very cautious and aware of potential abuse and extended duration of patients' medication needs. a. Pain medications are for your comfort and to assist with sleep and rest so that the tissue can heal. They are not provided in order to return to normal activity and should not be used through the day. To do so or worsening pain at night can result from ongoing tissue damage and development of tolerance to the prescribed medicine. 6. Please allow 2-3 days to process refills. Prescriptions will not be mailed but must be picked up at the office. FOLLOW UP VISIT: Keep your scheduled follow-up appointment. Any questions, please call the office at . Pending Studies at Discharge: No Stand-Alone Forms: My [facility] [employer], Smoking Cessation Medications and DC Order Prescriptions: New tramadol 50 mg tablet 50 mg PO Q6H PRN (Reason: pain, moderate) Qty: 30 0RF oxycodone 5 mg tablet 5 mg PO Q6H PRN (Reason: pain) Qty: 30 0RF Continued finasteride 5 mg tablet 5 mg PO QPM oxycodone-acetaminophen 5-325 mg tablet 1 tab PO TID PRN (Reason: Pain) metformin 500 mg tablet 1,000 mg PO QPM atorvastatin 10 mg tablet 10 mg PO [id number] Patient Comments: saturday/sat/saturday multivitamin Tablet 1 tab PO QAM cyclobenzaprine 10 mg Tablet 10 mg PO BID furosemide [Lasix] 40 mg Tablet 40 mg PO QAM calcium 600 mg Capsule 600 mg PO QAM folic acid 1 mg Tablet 1 mg PO UD Patient Comments: takes 1 tablet everyday except sat. Rx Instructions: except saturday's pseudoephedrine HCl [Sudafed] 30 mg Tablet 30 mg PO Q6H PRN (Reason: Congestion) losartan 100 mg Tablet 100 mg PO QAM Ocuvite Tablet 1 tab PO HS Afrin Saline Nasal Mist 0.65 % Mist 1 spray INTRANASAL BID PRN (Reason: Congestion) olopatadine [Pataday] 0.2 % Drops 1 drp OPHTHALMIC (EYE) DAILY PRN (Reason: as needed) Advil PM 200-38 mg Tablet 1 cap PO HS PRN (Reason: Sleep) cholecalciferol (vitamin D3) [Vitamin D3] 50 mcg (2,000 unit) Tablet 50 mcg PO BID Rinvoq 15 mg Tablet Extended Release 24 Hr 15 mg PO QAM Patient Comments: pt states would like to take his own medication when admitted d/t expense Held methotrexate sodium 2.5 mg Tablet 2.5 mg PO UD Patient Comments: takes 8 tablets every sat. Rx Instructions: Take once per week on saturday' Discharge Orders: Discharge Order (Routine); Ordered 07/16/24 Ordered By: Getachew Woods Admission Data Admit Date/Time: 07/13/24 13:08 Attending Provider: Getachew Woods Admit Provider: Getachew Woods Primary Care Provider: Jasper Thornton Other Providers: Em Ryan
--- NOTE | 2024-07-16 11:24 | Hospitalist Progress Note ---
Date of Service July 16, 2024 Assessment & Plan (1) Neurogenic claudication due to lumbar spinal stenosis: (2) Diabetic peripheral neuropathy associated with type 2 diabetes mellitus: (3) Chronic venous insufficiency of lower extremity: (4) Lymphedema: (5) Hypertension: (6) Morbid obesity: Plan Patient is a 78-year-old male who has significant past medical history of HTN, HLD, T2DM, diabetic neuropathy, b/l lymphedema, seronegative rheumatoid arthritis, PMR, hypersomnia with sleep apnea, morbid obesity who presents for elective lumbar procedure by Dr. Woods. Lumbar spinal stenosis with neurogenic claudication S/P L3-S1 decompression fusion with L4-S1 hardware removal Postop anemia Continue pain/wound management per orthopedics PT OT as able Continue incentive spirometry Bowel regimen to prevent constipation Acute blood loss anemia, post-op, possibly also dilutional -current Hgb 11.7 (improved from yesterday) , pre-op Hgb 14 No indication for transfusion currently Transient hypoxia, resolved H/O KORINA CXR suggestive of mild pulmonary vascular congestion Resumed home diuretics Incentive spirometry Monitor DM II HbA1c 6.9, hold metformin ISS per protocol, glycemic pharmacy on board Monitor BGs HTN: Continue home medications Monitor blood pressure HLD: chronic, stable continue statin RA: on Methotrexate/rinvoq, follows [facility] Chronic leg edema Continue home diuretics as able Monitor volume status May benefit from getting an echo as outpatient Morbid obesity BMI 43 DVT Px: per primary /surgeon Code Status FULL CODE Admission and Anticipated Discharge Date Admission Date: July 13, 2024 Subjective Patient is seen in follow up of med consult, pt s/p spinal surgery Overall pt states he feels well He has been ambulating Denies any significant surgical site pain Denies any fever, chills, chest pain, nausea, vomiting, abdominal pain Pt reports voiding w/o difficulty and having BMs Plan for poss. DC today Review of Systems Review of Systems: All systems reviewed & are unremarkable except as noted in Subjective Physical Exam Physical Exam: General Appearance:Obese M, no apparent distress Head: normocephalic, Atraumatic Eyes: normal inspection, EOMI Neck: supple Respiratory/Chest: Decreased breath sounds, CTA, No accessory muscle use Cardiovascular: S1, S2, no murmur Abdomen/GI:Soft, Non tender, Bowel sounds present Back+ surgical site in dressing,+ ZACHARIAH drain Extremities/Musculoskeletal:normal inspection, 1+ edema Neurologic/Psych:AAOX3, speech fluent, no facial asymmetry, answers appropriately, moves extremities Skin: warm, dry Results & Data Results & Data Vital Signs (Past 12 Hours) Vital Signs Temp Pulse Resp BP Pulse Ox O2 Del Method 07/16/24 07:15 Room Air 07/16/24 07:03 36.4 C L 88 16 133/75 97 Room Air Laboratory Results 07/16/24 07/16/24 07/16/24 Range/Units 11:25 08:01 07:28 WBC 11.70 H (4.8-10.8) K/ul RBC 3.93 L (4.70-6.10) M/uL Hgb 11.7 L (14.0-18.0) g/dl Hct 35.9 L (42.0-52.0) % MCV 91.3 (80.0-100.0) fL MCH 29.8 (25.0-34.0) pg MCHC 32.6 (32.0-36.0) g/dL RDW Std Deviation 44.6 (36.4-46.3) fL RDW Coeff of Ebony 13.4 (11.5-14.5) % Plt Count 267 (130-400) K/uL MPV 8.7 L (9.4-12.4) fL Sodium 136 (136-145) mmol/L Potassium 4.0 (3.5-5.1) mmol/L Chloride 100 (98-107) mmol/L Carbon Dioxide 27 (21-32) mmol/L Anion Gap 9 (3-11) BUN 18 (6-23) mg/dl Creatinine 0.77 (0.6-1.4) mg/dl Est Cr Clr Drug Dosing 118.1 ml/min eGFR 92.78 BUN/Creatinine Ratio 23.4 H (10-20) Glucose 131 H (70-99(Fasting)) mg/dl POC Glucose 160 H 127 H (70-99) mg/dl Calcium 9.1 (8.6-10.3) mg/dl Phosphorus 2.9 (2.5-4.9) mg/dl Magnesium 2.1 (1.7-2.4) mg/dl 07/15/24 07/15/24 07/15/24 Range/Units 20:25 16:47 11:45 WBC (4.8-10.8) K/ul RBC (4.70-6.10) M/uL Hgb (14.0-18.0) g/dl Hct (42.0-52.0) % MCV (80.0-100.0) fL MCH (25.0-34.0) pg MCHC (32.0-36.0) g/dL RDW Std Deviation (36.4-46.3) fL RDW Coeff of Ebony (11.5-14.5) % Plt Count (130-400) K/uL MPV (9.4-12.4) fL Sodium (136-145) mmol/L Potassium (3.5-5.1) mmol/L Chloride (98-107) mmol/L Carbon Dioxide (21-32) mmol/L Anion Gap (3-11) BUN (6-23) mg/dl Creatinine (0.6-1.4) mg/dl Est Cr Clr Drug Dosing ml/min eGFR BUN/Creatinine Ratio (10-20) Glucose (70-99(Fasting)) mg/dl POC Glucose 138 H 188 H 109 H (70-99) mg/dl Calcium (8.6-10.3) mg/dl Phosphorus (2.5-4.9) mg/dl Magnesium (1.7-2.4) mg/dl Medications Administered Current Inpatient Medications Acetaminophen (Acetaminophen 500 Mg Tab) 1,000 mg PO Q8H PRN PRN Reason: MILD Pain Scale 1,2,3 & Pre PT Stop: 08/12/24 14:32 Al Hydrox/Mg Hydrox/Simethicone (Aluminum/Magnesium Susp 30 Ml Udc) 30 ml PO Q6H PRN PRN Reason: Dyspepsia Stop: 08/12/24 14:32 Artificial Tears (Artificial Tears) 1 drops OP QID PRN PRN Reason: Dryness Stop: 08/12/24 15:52 Atorvastatin Calcium (Atorvastatin 10 Mg Tab) 10 mg PO [id number] [facility] Stop: 08/12/24 20:59 Last Admin: 07/15/24 21:04 Dose: 10 mg Bisacodyl (Bisacodyl 10 Mg Supp) 10 mg IN DAILY PRN PRN Reason: Constipation Stop: 08/12/24 14:32 Calcium Carbonate (Calcium Carbonate 1250mg Tab) 1 tab PO QAM [facility] Stop: 08/13/24 08:59 Last Admin: 07/16/24 08:05 Dose: 1 tab Cyclobenzaprine HCl (Cyclobenzaprine Hcl 10 Mg Tab) 10 mg PO BID [facility] Stop: 08/12/24 20:59 Last Admin: 07/16/24 08:07 Dose: 10 mg Dextrose (Dextrose 50% 50 Ml Syringe) 25 - 50 ml IV UD PRN; Protocol PRN Reason: Hypoglycemia Protocol Stop: 08/12/24 15:29 Diphenhydramine HCl (Diphenhydramine Capsule 25 Mg Cap) 25 mg PO Q6H PRN PRN Reason: Allergic Rhinitis/Insomnia Stop: 08/12/24 14:32 Famotidine (Famotidine 20 Mg Tab) 20 mg PO Q12H PRN PRN Reason: Dyspepsia Stop: 08/12/24 14:32 Finasteride (Finasteride 5 Mg Tab) 5 mg PO QPM [facility] Stop: 08/12/24 20:59 Last Admin: 07/15/24 21:04 Dose: 5 mg Folic Acid (Folic Acid 1 Mg Tab) 1 mg PO [id number] [facility] Stop: 08/13/24 08:59 Last Admin: 07/16/24 08:05 Dose: 1 mg Furosemide (Furosemide 40 Mg Tab) 40 mg PO QAM [facility] Stop: 08/13/24 08:59 Last Admin: 07/16/24 08:06 Dose: 40 mg Glucagon (Glucagon For Inj 1 Mg Vial) 1 mg SQ UD PRN; Protocol PRN Reason: Hypoglycemia Protocol Stop: 08/12/24 15:29 Glucose (Glucose 40% Gel 15 Gm Tube) 15 - 30 gm PO UD PRN; Protocol PRN Reason: Hypoglycemia Protocol Stop: 08/12/24 15:29 Glucose (Glucose 10 Tab/Tube) 4 - 8 tab PO UD PRN; Protocol PRN Reason: Hypoglycemia Protocol Stop: 08/12/24 15:29 Hydromorphone HCl (Hydromorphone Inj 0.5 Mg/0.5 Ml Syr) 0.5 mg IV Q3H PRN PRN Reason: MODERATE Pain (Scale 4,5,6) & Stop: 07/27/24 14:32 Hydromorphone HCl (Hydromorphone Inj 1 Mg/Ml Syringe) 1 mg IV Q3H PRN PRN Reason: SEVERE Pain (Scale 7,8,9,10) Stop: 07/27/24 14:32 Last Admin: 07/14/24 02:50 Dose: 1 mg Hydroxyzine HCl (Hydroxyzine Hcl 25 Mg Tab) 25 mg PO Q8H PRN PRN Reason: Anxiety Stop: 08/12/24 14:32 Promethazine HCl (Phenergan) 12.5 mg in 50.5 mls @ 202 mls/hr IV Q6H PRN PRN Reason: Nausea And Vomiting Stop: 08/12/24 14:32 Influenza Virus Vaccine Quadrival (Do Not Administer Flu Vaccine) 1 each N/A PRN PRN PRN Reason: Notification Stop: 08/12/24 14:32 Insulin Aspart (Insulin Aspart Per Unit Charge) 0 units SC [facility] Stop: 08/12/24 16:29 Last Admin: 07/16/24 08:15 Dose: 7 units Lorazepam (Lorazepam 0.5 Mg Tab) 0.5 mg PO Q8H PRN PRN Reason: Sedation/Anxiety Stop: 08/12/24 14:32 Lorazepam (Lorazepam 2 Mg/1 Ml Vial) 0.5 mg IV Q8H PRN PRN Reason: Sedation/Anxiety Stop: 08/12/24 14:32 Losartan Potassium (Losartan Potassium 50 Mg Tab) 100 mg PO QAM [facility] Stop: 08/13/24 08:59 Last Admin: 07/16/24 08:05 Dose: 100 mg Magnesium Hydroxide (Magnesium Hydroxide Susp 30 Ml Udc) 30 ml PO Q24H PRN PRN Reason: Constipation Stop: 08/12/24 14:32 Metoclopramide HCl (Metoclopramide Hcl Inj 5 Mg/Ml 2 Ml Vial) 10 mg IV Q6H PRN PRN Reason: Nausea &/or Vomiting Stop: 08/12/24 14:32 Miscellaneous (Upadacitinib (Rinvoq) Order Awaiting Action) 1 each N/A QS [facility] Stop: 08/12/24 15:59 Last Admin: 07/16/24 08:07 Dose: Not Given Miscellaneous (Carbohydrates For Hypoglycemia ) 15 - 30 gm PO UD PRN PRN Reason: Hypoglycemia Treatment Stop: 08/12/24 15:29 Miscellaneous Information (Pharmacy Glycemic Mgmt Consult) 1 each N/A UD PRN PRN Reason: Consult Stop: 08/12/24 14:32 Multivitamins (Multivitamin Tab) 1 tab PO QAM [facility] Stop: 08/13/24 08:59 Last Admin: 07/16/24 08:06 Dose: 1 tab Multivitamins/Minerals (Cerovite Adv Formula Tab) 1 tab PO HS [facility] Stop: 08/12/24 20:59 Last Admin: 07/15/24 21:04 Dose: 1 tab Naloxone HCl (Naloxone Hcl 0.4 Mg/1 Ml Vial/Carp) 0.1 mg IV Q5M PRN PRN Reason: Oversedation/Resp depression Stop: 08/12/24 14:32 Ondansetron HCl (Ondansetron Inj 2 Mg/Ml 2 Ml Vial) 4 mg IV Q6H PRN PRN Reason: Nausea &/or Vomiting Stop: 08/12/24 14:32 Ondansetron HCl (Ondansetron 4 Mg Od Tab) 4 mg PO Q6H PRN PRN Reason: Nausea Stop: 08/12/24 14:32 Oxycodone HCl (Oxycodone Hcl Ir 5 Mg Tab (Immediate Release)) 5 - 10 mg PO Q4H PRN PRN Reason: Pain & Pre PT Stop: 07/27/24 14:32 Last Admin: 07/16/24 07:45 Dose: 10 mg Pneumococcal Polyvalent Vaccine (Do Not Administer Pneumococcal Vaccine) 1 each N/A PRN PRN PRN Reason: Notification Stop: 08/12/24 14:32 Pseudoephedrine HCl (Pseudoephedrine Hcl 30 Mg Tab) 30 mg PO Q6H PRN PRN Reason: Congestion Stop: 08/12/24 14:32 Senna/Docusate Sodium (Docusate Sodium/Senna 50/8.6mg Tab) 2 tab PO HS [facility] Stop: 08/12/24 20:59 Last Admin: 07/15/24 21:04 Dose: 2 tab Sodium Biphosphate/Sodium Phosphate (Sod Phosphate/Sod Biphosphate Enema 132 Ml Btl) 132 ml IN ONE PRN PRN Reason: Constipation Stop: 08/12/24 14:32 Sodium Chloride (Sodium Chloride 0.65% Na Soln 45 Ml ([place])) 1 sprays NA BID PRN PRN Reason: Congestion Stop: 08/12/24 14:51 Tramadol HCl (Tramadol Hcl 50 Mg Tablet) 50 - 100 mg PO Q4H PRN PRN Reason: Moderate-Severe pain & Pre PT Stop: 08/12/24 14:32 Vitamin D (Cholecalciferol 25 Mcg (1000 Units) Tab) 50 mcg PO BID [place] Stop: 08/12/24 20:59 Last Admin: 07/16/24 08:05 Dose: 50 mcg
[2024-07-16 12:30] VITALS: BP 129/89; PULSE 97; RESP 18; TEMP 98.1
== END 2024-07-16 14:51 | disposition home or self-care (01) | DRG 427 ==
LOC: ASU 07:43 → 3E 13:08